=== PATIENT | male | born 1960 | race Caucasian/White ===

== ENCOUNTER → 2017-06-17 | Outpatient (CLI) | payer BC ==
[2016-07-31 15:01] VITALS: BP 132/85
[~2017-06-17] MED LIST: ACET-1574; CELE200C PO; ENOX40DI SQ; FERR142T13 PO; GLUC100018 PO; HYDR-2679 PO; LISI-334 PO; LISI40TA PO; METF-620 PO; SIMV10TA3 PO; SIMV20TA3 PO; SOTA80TA48 PO; WARF4TAB7 PO
[2017-06-17 10:25] LABS: BILIRUBIN,URINE NEGATIVE (NEG); GLUCOSE,URINE 100 mg/dL (NEG); NITRITE,URINE NEGATIVE (NEG); PROTEIN,URINE NEGATIVE (NEG-TRACE); UROBILINOGEN,URINE 0.2 mg/dL (0.2 mg/dL)
[2017-06-17 10:25] LABS: BASO # 0.1 x10^3/uL (0.0-0.2); BASO % 1 % (0-3); EOS % 4 % (0-3); HEMATOCRIT 42.3 % (39.0-53.0); HEMOGLOBIN 13.5 g/dL (13.0-17.5); LYMPH # 1.6 x10^3/uL (1.0-4.8); LYMPH % 15 % (24-48); MEAN CORPUSCULAR HEMOGLOBIN 29 pg (25-35); MEAN CORPUSCULAR HGB CONC 32 g/dL (31-37); MEAN CORPUSCULAR VOLUME 90 fL (79-100); MONO % 9 % (0-9); NEUT % 72 % (31-73); PLATELET COUNT 233 x10^3/uL (140-400); RED BLOOD COUNT 4.71 x10^6/uL (4.30-5.70); RED CELL DISTRIBUTION WIDTH 14.6 % (11.5-14.5)
[2017-06-17 10:35] LABS: INR 2.1 (0.8-1.1); PROTHROMBIN TIME PATIENT 22.1 SEC (11.7-14.0)
[2017-06-17 10:38] LABS: BACTERIA,URINE 0 /HPF (0-FEW); WBC,URINE 0 /HPF (0-4)
[2017-06-17 10:39] LABS: ALBUMIN 3.4 g/dL (3.4-5.0); CALCIUM 8.7 mg/dL (8.5-10.1); CREATININE 0.8 mg/dL (0.7-1.3); GFR 99.3; POTASSIUM 4.7 mmol/L (3.5-5.1)
--- NOTE | 2017-06-17 13:38 | EKG ---
[facility] [address] [place] [address] Test Date: 2017-06-17 Test Time: 13:43:18 Pat Name: LAUREN ALVAREZ Department: Room: Gender: M Lathe Winder: : 1960 Requested By: DOLORES VITAL Order Number: [id number] Reading MD: Kailee Mireles Measurements Intervals Elkins Rate: 70 P: ID: QRS: 3 QRSD: 100 T: 36 QT: 422 QTc: 459 Interpretive Statements SINUS RHYTHM PREMATURE ATRIAL CONTRACTIONS POSSIBLY ABNORMAL ECG Electronically Signed On 06-18-2017 19:13:56 CDT by Kailee Mireles
--- NOTE | 2017-06-17 18:00 | RAD ---
INDICATION: Preoperative evaluation. COMPARISON: 07/30/2016 FINDINGS: 2 views of chest obtained. Poststernotomy changes with pacemaker again seen. Degenerative changes of the thoracic spine with osteophyte formation. No definite focal airspace consolidation or pulmonary edema. IMPRESSION: No definite focal airspace consolidation. Degenerative changes of the spine.
== END | disposition home or self-care (01) ==
LOC: SURGPAT 13:11
PROVIDERS: ATTEND Orthopaedic Surgery
DX: Z01.818 Encounter for other preprocedural examination (principal); M25.78 Osteophyte, vertebrae; M47.894 Other spondylosis, thoracic region; I49.1 Atrial premature depolarization; I10 Essential (primary) hypertension
CPT/HCPCS: 36415; 71020; 80048; 81001; 82040; 82306; 85025; 85610; 85651; 85730; 87641; 93005

== ENCOUNTER 2017-07-09 05:35 | Inpatient (IN) | payer BC ==
--- NOTE | 2017-07-08 15:06 | PDOC1 ---
History and Physical Date of Admission Date of Admission DATE: 07/09/17 Identification/Chief Complaint Chief Complaint left knee osteoarthritis pain Problems: Source Source: Chart review History of Present Illness History of Present Illness Jl is a 56 year old male here today for left knee pain. He has bilateral knee osteoarthritis that has been managed with periodic corticosteroid injections. The left knee is more painful than right knee. His last cortisone injection was on 02/14/17. Celebrex helps his knee pain. Past Medical History Cardiovascular: CHF, HTN, Aortic stenosis, Other GI: GERD Musculoskeletal: Osteoarthritis Endocrine: Diabetes Past Surgical History Past Surgical History: Other (aortic valve implant 1997, right knee scope with MM and LM 05/22/16) Family History Family History COPD - parents Family History: Depression, Diabetes Social History Smoke: No ALCOHOL: rare Drugs: None Current Medications Current Medications Current Medications Morphine Sulfate 5 mg/Ketorolac Tromethamine 30 mg/Ropivacaine 60 ml/ Epinephrine HCl 0.5 mg/Sodium Chloride 100 ml @ 100 mls/hr 1X PERIOP ONCE INT ART ; Start 07/09/17 at 06:00; Stop 07/09/17 at 06:59 Active Scripts Active Reported Celebrex (Celecoxib) 200 Mg Capsule 200 Mg PO PRN Q24HRS PRN 30 Days Slow Fe (Ferrous Sulfate) 142 Mg Tablet.er 142 Mg PO DAILY Glucosamine (Glucosamine Sulfate 2KCL) 1,000 Mg Tablet Unknown Dose PO Lortab 7.5-325 mg Tablet (Hydrocodone/Acetaminophen) 1 Each Tablet 1-2 Tab PO Q4HRS PRN Lisinopril 40 Mg Tablet 1 Tab PO DAILY Simvastatin 10 Mg Tablet 1 Tab PO QHS Sotalol (Sotalol Hcl) 80 Mg Tablet 1 Tab PO BID Warfarin Sodium 4 Mg Tablet 8 Mg PO UD PT TAKES 8 MG DAILTY EXCEPT NONE ON SUNDAYS Metformin Hcl 1,000 Mg Tablet 1,000 Mg PO BIDWMEALS Celebrex (Celecoxib) 200 Mg Capsule 200 Mg PO DAILY 0 Days Allergies Allergies: Coded Allergies: azithromycin (Verified Allergy, Intermediate, Hives, 07/30/16) codeine (Verified Adverse Reaction, Intermediate, gi, 07/30/16) shellfish derived (Verified Adverse Reaction, Unknown, Unknown, 06/14/17) Physical Exam General: Alert, Oriented X3, Cooperative, No acute distress HEENT: Atraumatic, EOMI Lungs: Normal air movement Heart: RRR Abdomen: Soft Extremities: No clubbing, No cyanosis, No edema, Normal pulses, Other (Upon inspection of the left knee, there are no masses or detectable effusion. Mild valgus alignment. The left knee shows active range of motion from 0-115 degrees. There is crepitus felt with motion and pain at the extremes of motion. There is tenderness to palpation along the lateral joint line. The knee is stable to varus and valgus stress, without subluxation or laxity. Quadriceps and hamstring show normal strength of 5/5, with normal muscle tone. Trace bilateral lower extremity edema. Varicosities to bilateral lower extremities.) Skin: No rashes, No breakdown, No significant lesion Neuro: Normal speech, Sensation intact Psych/Mental Status: Mental status NL, Mood NL Images Images IMAGING REPORT Joint survey, hips knees and ankles Clinical information: Preoperative for total knee arthroplasty Comparison: None. Findings Bones: The angle between the right hip-ankle mechanical axis and the femoral shaft is 5. The angle between the left hip-ankle mechanical axis and the femoral shaft is 5 . The mechanical axis crosses near the center of the right knee indicating probable normal alignment possible slight varus alignment. The mechanical axis crosses in the lateral aspect of the left knee indicating valgus alignment. Joints: There are degenerative changes at the left knee laterally, and possibly at the right knee medially. The hips and ankles show minimal degenerative changes. Soft tissue: Normal. Impression: Valgus alignment of the left knee. Trace varus alignment of the right knee. The difference between the mechanical axis and femoral shaft anatomic axis is 5 bilaterally. Dictated and Signed Using Voice Recognition Software Jomar Johnson MD VTE Prophylaxis Ordered VTE Prophylaxis Devices: Yes VTE Pharmacological Prophylaxi: Yes Assessment/Plan Assessment/Plan We discussed left total knee arthroplasty in detail, the rehabilitation process , joint class, and surgical procedure. We discussed the potential risks of surgery, including infection, blood clots, bleeding, continued pain, need for revision surgery, and any other potential surgical or anesthetic complications. All of his questions were answered and he agrees to proceed. We will inject his right knee with cortisone while under anesthesia. CANDICE JONES Jul 08, 2017 15:06
[2017-07-09] VITALS (10 sets, daily range): BP systolic 127–158; BP diastolic 68–95
[~2017-07-09] VITALS: Ht 193 cm; Wt 164.7 kg
[2017-07-09] MEDS ORDERED: TRANEXAMIC ACID 1,000 MG in IV NS 50ML -- 1ST BAG INJ ONE (06:00)
[2017-07-09] MEDS ORDERED: MORPHINE SULFATE 5 MG, KETOROLAC 30 MG, ROPIVacaine 0.5% PF 60 ML, EPINEPHrine 0.5 MG i... INT ART ONE ×5 (06:00)
[2017-07-09] MEDS ORDERED: HYDROcodone/APAP 7.5/325MG 1 TAB TABLET PO PRN ×2 (06:00→10:00)
[2017-07-09] MEDS ORDERED: CELECOXIB 200 MG CAPSULE. PO PRN (06:00)
[2017-07-09] MEDS ORDERED: DEXAMETHASONE SOD PHOS 20 MG/5 ML VIAL. ONE (06:27)
[2017-07-09] MEDS ORDERED: PROPOFOL 20 ML IV ONE ×2 (06:27→09:31)
[2017-07-09] MEDS ORDERED: ONDANSETRON PF 4 MG/2 ML VIAL. ONE (06:27)
[2017-07-09] MEDS ORDERED: LIDOCAINE 2% PF Vial for OR 5 ML VIAL. ONE (06:27)
[2017-07-09] MEDS ORDERED: VANCOMYCIN 1 GM VIAL. ONE (06:32)
[2017-07-09] MEDS ORDERED: TOBRAMYCIN POWDER 1.2 GM VIAL. ONE (06:32)
[2017-07-09] MEDS ORDERED: BUPIVACAINE MPF 0.25% 30 ML VIAL. ONE (06:38)
[2017-07-09] MEDS ORDERED: methylPREDNISolone ACETATE 80 MG/ML VIAL. ONE (06:38)
[2017-07-09] MEDS ORDERED: FAMOTIDINE 20 MG/2 ML VIAL ONE (06:51)
[2017-07-09] MEDS ORDERED: MIDAZOLAM HCL/PF 2 MG/2 ML VIAL. ONE (06:51)
[2017-07-09] MEDS ORDERED: fentaNYL PF VIAL 100 MCG/2 ML VIAL ONE ×2 (06:51→08:05)
[2017-07-09] MEDS ORDERED: IV RINGERS,LACTATED 1000ML 1,000 ML IV SCH (07:00)
[2017-07-09] MEDS ORDERED: PROCHLORPERAZINE 10 MG/2 ML VIAL. IV PRN ×2 (07:00→10:00)
[2017-07-09] MEDS ORDERED: LIDOCAINE 1% PF 2 ML VIAL. ID PRN (07:00)
[2017-07-09] MEDS ORDERED: fentaNYL PF VIAL 100 MCG/2 ML VIAL IV PRN ×3 (07:00→10:00)
[2017-07-09] MEDS ORDERED: SUCCINYLCHOLINE 200 MG/10 ML VIAL. ONE (07:16)
[2017-07-09] MEDS ORDERED: ROCURONIUM 50 MG/5 ML VIAL. ONE (07:27)
[2017-07-09] MEDS ORDERED: LIDOCAINE 2% TOPICAL JELLY 5GM TUBE. TP ONE (07:44)
[2017-07-09] MEDS ORDERED: 0.9 % SODIUM CHLORIDE 50 ML VIAL. IJ ONE (07:50)
[2017-07-09] MEDS ORDERED: TRANEXAMIC ACID 1,000 MG in IV NS 50ML -- 2ND BAG INJ ONE (08:00)
[2017-07-09 08:08] LABS: INR 1.1 (0.8-1.1); PROTHROMBIN TIME PATIENT 13.3 SEC (11.7-14.0)
[2017-07-09] MEDS ORDERED: NEOSTIGMINE 10 MG/10 ML VIAL. ONE (08:49)
[2017-07-09] MEDS ORDERED: GLYCOPYRROLATE 1 MG/5 ML VIAL. ONE (08:50)
[2017-07-09] MEDS ORDERED: DESFLURANE > 120 MINUTES IH ONE (09:28)
[2017-07-09] MEDS ORDERED: DESFLURANE 61 TO 120 MINUTES IH ONE (09:28)
--- NOTE | 2017-07-09 09:32 | PDOC4 ---
Operative Note Operative Note Date of Procedure: July 09, 2017 Pre-Op Diagnosis: Osteoarthritis left knee and right knee Post-Op Diagnosis: Osteoarthritis left knee and right knee Procedure: left total knee arthroplasty and right knee corticosteroid injection Surgeon: Dolores Johnson MD Compliance Review Officer: Sulema Smith PA-C Anesthesia: General EBL: 100 mL Specimens Obtained: left knee bone and soft tissue Complications: none Implant Company: [employer] Drains: hemovac plus pain catheter Tourniquet time: 55 Minutes Tourniquet Pressure: 350 mm Hg Indications for Procedure: Arthritis pain unrelieved by nonoperative management. Findings: Severe osteoarthritis with bone on bone contact laterally Implants used: Size 7 left bicruciate stabilized Journey II BCS Oxinium femoral component, size 7 left Journey nonporous tibial baseplate, size 7-8 10 mm left Journey II BCS XLPE articular insert, 41 mm oval Lori II resurfacing patellar component Procedure in Detail: The patient was identified in the preoperative holding area, and the correct left lower extremity was marked by me. The patient was taken to the operating room where the patient was anesthetized by the Department of Anesthesia. Preoperative antibiotics were given intravenously. Tranexamic acid 1 g was given intravenously for intraoperative hemostasis. A "time-out" procedure was performed. The patient was positioned supine on the operative table with a tourniquet on the upper left thigh. The right knee was prepared for injection with topical Betadine, and then the right knee was injected with 80 mg of DepoMedrol and 1 mL of 0.25% bupivacaine, using sterile technique. A Band-Aid was placed.The left lower limb was thoroughly prepped and draped in sterile fashion. An impervious stockinet and adhesive drape were used such that the skin was entirely covered. An Guevara leg marie was used. The operating team wore personal exhaust-ventilated hoods. The limb was elevated to exsanguinate it, and the tourniquet was inflated.. A midline skin incision was made with a scalpel using the patella and tibial tubercle as landmarks. Electrocautery was used for hemostasis. My casino assistant manager used rake retractors. A medial parapatellar arthrotomy incision was used with extension into the distal quadriceps tendon. The patella was retracted laterally and Hohmann retractors were now used by my casino assistant manager. Excess synovium, the menisci, and the cruciate ligaments were resected sharply. The patella was assessed and excess synovium and osteophytes around the patellar articulation were removed. The patella was measured with a caliper, cut freehand with a saw using caliper measurements, sized, and then drilled for an oval three-pegged patella component. Periarticular anesthetic injection was used in the suprapatellar pouch and distal quadriceps muscle. Whitesides's line and the transepicondylar axis were marked on the femur. An intra-medullary 5 degree cutting guide was pinned to the femur, and a distal femoral cut was made with an oscillating saw. An additional 4 mm resection was used due to the deep femoral sulcus, and deficient femoral condyle. My casino assistant manager held Hohmann retractors and an [facility] retractor to protect the medial and lateral collateral ligaments, the patellar tendon, the skin and the other soft tissues. An anterior referencing guide was applied with external rotation of 3 to match Whitesides line. A 5-in-1 Journey II cutting guide was then applied and pinned to the femur. The posterior, anterior, and all chamfer cuts were made with the oscillating saw. An extramedullary guide was pinned to the tibia and rotational alignment and the planned resection thickness assessed. An external alignment claudia was used to verify the planned cut in the varus-valgus plane and regarding posterior slope referencing the tibial tubercle, the tibial shaft, the ankle joint, and the second metatarsal. The upper tibia was cut made with an oscillating saw. My casino assistant manager held Hohmann retractors and a posterior cruciate ligament retractor to protect the medial and lateral collateral ligaments, the patellar tendon, the skin, the peroneal nerve and the other soft tissues. The upper tibia was sized with a trial baseplate. The posterior compartment was cleared of osteophytes and loose bodies, and posterior capsule released. Periarticular anesthetic injection was used in the posterior compartment. The box cut for a posterior stabilized component was made. A preliminary reduction was performed with a trial femur, trial tibial baseplate and trial polyethylene. Soft-tissue balancing was now performed, and extension and rotation of the alignments was checked using a guide claudia in the tibial trial and a guide pin in the femur. No additional releases were required. The stability was assessed using different thicknesses of tibial articular surface to find satisfactory stability and good range of motion. The rotation of the tibial component was marked on the upper tibia. Final trial reduction was now performed verifying patella tracking and tibiofemoral stability and alignment. The tibia preparation was completed with a drill, saw, and fin punch at the previously noted rotation. The final implants were verified and opened. Outer gloves were changed by the operating team. The bone cuts were washed thoroughly with the [employer] InterPulse device and dried. Two packages of Staley + Nephew Rally HV bone cement were mixed in powdered form with Vancomycin 1gm and Tobramycin 1.2 gm, and then vacuum-mixed with the monomer, and placed into a cement gun. The cut surfaces of the bone were thoroughly dried with Pride-tip suction and with laparotomy sponges for cement interdigitation. The final components were cemented into place. The knee was kept at full extension while the cement hardened, and excess cement was removed. Tranexamic acid 1 g was redosed intravenously for additional intraoperative hemostasis. A final periarticular anesthetic injection was used for pain relief. The tourniquet was released, and electrocautery was used for hemostasis. A final check of [id number] and stability was made, and the polyethylene implant final size was chosen. The polyethylene implant was secured to the tibial baseplate, and the knee was reduced a final time. Thorough irrigation was used. Hemovac and pain catheter were used.The arthrotomy was closed with interrupted [id number] #1 PDS suture. The arthrotomy incision was then run with #1 STRATAFIX Symmetric PDS Plus Knotless suture. The subcutaneous tissues were closed with #2-0 Vicryl by my casino assistant manager. The skin was approximated with larissa by my casino assistant manager. The skin incision was then covered and reinforced with a Prevena sterile suction dressing. Needle and sponge counts were correct. There were no apparent complications. The patient returned to the recovery room in stable condition. DOLORES JOHNSON MD Jul 09, 2017 09:32
[2017-07-09] MEDS ORDERED: HYDROcodone/APAP 10/325 1 TAB TABLET PO PRN (10:00)
[2017-07-09] MEDS ORDERED: MORPHINE SULFATE 10 MG/ML VIAL. IV PRN (10:00)
[2017-07-09] MEDS ORDERED: traMADol 50 MG TABLET PO PRN (10:00)
[2017-07-09] MEDS ORDERED: MORPHINE SULFATE 4 MG/ML DISP.SYRIN. IV PRN ×3 (10:00)
[2017-07-09] MEDS ORDERED: METOCLOPRAMIDE HCL 10 MG/2 ML VIAL. IV PRN (10:00)
[2017-07-09] MEDS ORDERED: oxyCODONE/APAP 7.5/325 1 TAB TABLET PO PRN (10:00)
[2017-07-09] MEDS ORDERED: PROCHLORPERAZINE 5 MG TABLET. PO PRN (10:00)
[2017-07-09] MEDS ORDERED: oxyCODONE/APAP 5/325 1 TAB TABLET PO PRN (10:00)
[2017-07-09] MEDS ORDERED: DEXTROSE 50% 25 GM / 50ML DISP.SYRIN. IV PRN (10:00)
[2017-07-09] MEDS ORDERED: CALCIUM CARBONATE 500 MG TAB.CHEW PO PRN (10:00)
[2017-07-09] MEDS ORDERED: ZOLPIDEM 5 MG TABLET. PO PRN (10:00)
[2017-07-09] MEDS ORDERED: diphenhydrAMINE 50 MG/ML VIAL IV PRN (10:00)
[2017-07-09] MEDS ORDERED: 0.9 % SODIUM CHLORIDE 10 ML DISP.SYRIN. IV PRN (10:00)
[2017-07-09] MEDS: fentaNYL PF VIAL 100 MCG/2 ML VIAL IV PRN ×2 (10:09→10:34)
--- NOTE | 2017-07-09 10:26 | RAD ---
2 views left knee radiographs 07/09/2017 Clinical indication: Postoperative evaluation. Comparison: Left knee radiograph 10/13/2013 Findings: Interval total left knee arthroplasty with patellar resurfacing. Satisfactory alignment. No evidence of periprosthetic fracture. There is expected periarticular soft tissue swelling and gas. Impression: Expected postoperative changes of a total left knee arthroplasty with satisfactory alignment and no evidence of periprosthetic fracture.
[2017-07-09] MEDS ORDERED: IV DEXTROSE 5 %-0.45 % NACL 1,000 ML IV SCH (11:30)
[2017-07-09] MEDS: ceFAZolin SODIUM 3 GM in IV DEXTROSE 5% 100 ML IV SCH ×2 (13:46→19:12)
[2017-07-09] MEDS ORDERED: WARFARIN 7.5 MG TABLET. PO ONE (16:00)
[2017-07-09] MEDS ORDERED: WARFARIN 4 MG TABLET. PO SCH (16:00)
[2017-07-09] MEDS: FERROUS SULFATE 325 MG TABLET. PO SCH (16:33)
[2017-07-09] MEDS: KETOROLAC 30 MG, BUPIVACAINE MPF 0.25% 20 ML, EPINEPHrine 0.5 MG in TOTAL VOLUME SYRING... INT ART SCH (19:12)
[2017-07-09] MEDS: CELECOXIB 200 MG CAPSULE. PO SCH (21:13)
[2017-07-09] MEDS: SIMVASTATIN 10 MG TABLET PO SCH (21:13)
[2017-07-09] MEDS: SOTALOL 80 MG TABLET. PO SCH (21:13)
[2017-07-10] MEDS: ceFAZolin SODIUM 3 GM in IV DEXTROSE 5% 100 ML IV SCH (01:23)
[2017-07-10 03:33] VITALS: BP 139/71
[2017-07-10] MEDS: KETOROLAC 30 MG, BUPIVACAINE MPF 0.25% 20 ML, EPINEPHrine 0.5 MG in TOTAL VOLUME SYRING... INT ART SCH (05:29)
[2017-07-10 05:30] LABS: INR 1.1 (0.8-1.1); PROTHROMBIN TIME PATIENT 13.9 SEC (11.7-14.0)
[2017-07-10 05:32] LABS: HEMATOCRIT 35.3 % (39.0-53.0); HEMOGLOBIN 11.6 g/dL (13.0-17.5)
[2017-07-10] MEDS ORDERED: MAGNESIUM HYDROXIDE 2,400 MG/30 ML ORAL.SUSP. PO PRN (06:00)
[2017-07-10 06:36] VITALS: BP 131/78
[2017-07-10] MEDS: SOTALOL 80 MG TABLET. PO SCH ×2 (08:46→17:11)
[2017-07-10] MEDS: LISINOPRIL 40 MG TABLET. PO SCH (08:47)
[2017-07-10] MEDS: CELECOXIB 200 MG CAPSULE. PO SCH ×2 (08:47→20:53)
[2017-07-10] MEDS: MULTIVITAMIN with MINERAL TABLET. PO SCH (08:47)
[2017-07-10] MEDS: SENNOSIDES/DOCUSATE 8.6/50MG TABLET. PO SCH (08:47)
[2017-07-10] MEDS: FERROUS SULFATE 325 MG TABLET. PO SCH ×2 (08:47→17:10)
--- NOTE | 2017-07-10 13:18 | PDOC ---
PROGRESS NOTES Subjective Subjective No complaints. States he hasn't needed to take any pain medication today. Objective Vital Signs Vital Signs Date Time Temp Pulse Resp B/P (MAP) Pulse Ox O2 Delivery O2 Flow Rate FiO2 07/10/17 08:47 77 132/84 07/10/17 06:36 98.2 18 95 Room Air 98.2 07/09/17 14:02 3.0 Physical Exam Dressing dry. Prevena intact over incision. Pain catheter and Hemovac in place. Good dorsiflexion and plantarflexion of the foot with no evidence of neurovascular injury or DVT. Calves are soft and non-tender. Negative Homans. Peripheral pulses and light touch sensation intact. Labs Laboratory Tests Test 07/09/17 06:10 07/09/17 06:24 07/09/17 09:56 07/09/17 16:32 Prothrombin Time 13.3 SEC (11.7-14.0) Prothromb Time International Ratio 1.1 (0.8-1.1) Activated Partial Thromboplast Time 31 SEC (24-38) Glucose (Fingerstick) 156 mg/dL (70-99) 185 mg/dL (70-99) 224 mg/dL (70-99) Test 07/09/17 20:57 07/10/17 05:05 07/10/17 06:44 07/10/17 11:31 Glucose (Fingerstick) 239 mg/dL (70-99) 150 mg/dL (70-99) 131 mg/dL (70-99) Hemoglobin 11.6 g/dL (13.0-17.5) Hematocrit 35.3 % (39.0-53.0) Mean Corpuscular Hemoglobin Concent 33 g/dL (31-37) Prothrombin Time 13.9 SEC (11.7-14.0) Prothromb Time International Ratio 1.1 (0.8-1.1) Laboratory Tests Test 07/09/17 16:32 07/09/17 20:57 07/10/17 05:05 07/10/17 06:44 Glucose (Fingerstick) 224 mg/dL (70-99) 239 mg/dL (70-99) 150 mg/dL (70-99) Hemoglobin 11.6 g/dL (13.0-17.5) Hematocrit 35.3 % (39.0-53.0) Mean Corpuscular Hemoglobin Concent 33 g/dL (31-37) Prothrombin Time 13.9 SEC (11.7-14.0) Prothromb Time International Ratio 1.1 (0.8-1.1) Test 07/10/17 11:31 Glucose (Fingerstick) 131 mg/dL (70-99) Imaging Postoperative x-rays reviewed by me, showing satisfactory total knee replacement , with no apparent complications. Assessment Assessment POD #1 TKA Problems: Plan Plan of Care Continue POC including DVT prophylaxis and physical therapy. CANDICE JONES Jul 10, 2017 13:18
[2017-07-10] MEDS ORDERED: WARFARIN 10 MG TABLET. PO ONE (16:00)
[2017-07-10] MEDS ORDERED: BISACODYL 10 MG SUPP.RECT. PR PRN (16:00)
[2017-07-10] MEDS: traMADol 50 MG TABLET PO PRN (17:22)
[2017-07-10 18:09] VITALS: BP 177/100
[2017-07-10 18:50] VITALS: BP 130/73
[2017-07-10] MEDS: SIMVASTATIN 10 MG TABLET PO SCH (20:53)
[2017-07-11] MEDS: traMADol 50 MG TABLET PO PRN ×2 (05:14→08:21)
[2017-07-11 06:09] VITALS: BP 131/78
[2017-07-11 06:16] LABS: HEMATOCRIT 32.7 % (39.0-53.0); HEMOGLOBIN 10.7 g/dL (13.0-17.5)
[2017-07-11 06:32] LABS: INR 1.4 (0.8-1.1); PROTHROMBIN TIME PATIENT 16.4 SEC (11.7-14.0)
[2017-07-11] MEDS: MULTIVITAMIN with MINERAL TABLET. PO SCH (08:14)
[2017-07-11] MEDS: FERROUS SULFATE 325 MG TABLET. PO SCH ×2 (08:14→16:43)
[2017-07-11] MEDS: CELECOXIB 200 MG CAPSULE. PO SCH ×2 (08:14→20:59)
[2017-07-11] MEDS: LISINOPRIL 40 MG TABLET. PO SCH (08:15)
[2017-07-11] MEDS: SOTALOL 80 MG TABLET. PO SCH ×2 (08:15→20:59)
[2017-07-11] MEDS: SENNOSIDES/DOCUSATE 8.6/50MG TABLET. PO SCH (08:15)
--- NOTE | 2017-07-11 12:30 | PDOC ---
PROGRESS NOTES Subjective Subjective Doing well. Only reports mild pain increase from yesterday. Objective Vital Signs Vital Signs Date Time Temp Pulse Resp B/P (MAP) Pulse Ox O2 Delivery O2 Flow Rate FiO2 07/11/17 08:21 Room Air 07/11/17 08:15 77 131/78 07/11/17 06:15 20 95 07/11/17 06:09 98.3 98.3 07/09/17 14:02 3.0 Physical Exam Expected swelling. Pain catheter and drain have been removed. Prevena intact. Calf soft and nontender. Negative Homans sign. Good AROM ankle. Peripheral pulses and light touch sensation intact. Labs Laboratory Tests Test 07/09/17 16:32 07/09/17 20:57 07/10/17 05:05 07/10/17 06:44 Glucose (Fingerstick) 224 mg/dL (70-99) 239 mg/dL (70-99) 150 mg/dL (70-99) Hemoglobin 11.6 g/dL (13.0-17.5) Hematocrit 35.3 % (39.0-53.0) Mean Corpuscular Hemoglobin Concent 33 g/dL (31-37) Prothrombin Time 13.9 SEC (11.7-14.0) Prothromb Time International Ratio 1.1 (0.8-1.1) Test 07/10/17 11:31 07/10/17 16:37 07/10/17 20:35 07/11/17 06:00 Glucose (Fingerstick) 131 mg/dL (70-99) 138 mg/dL (70-99) 232 mg/dL (70-99) Hemoglobin 10.7 g/dL (13.0-17.5) Hematocrit 32.7 % (39.0-53.0) Mean Corpuscular Hemoglobin Concent 33 g/dL (31-37) Prothrombin Time 16.4 SEC (11.7-14.0) Prothromb Time International Ratio 1.4 (0.8-1.1) Test 07/11/17 06:20 Glucose (Fingerstick) 187 mg/dL (70-99) Laboratory Tests Test 07/10/17 16:37 07/10/17 20:35 07/11/17 06:00 07/11/17 06:20 Glucose (Fingerstick) 138 mg/dL (70-99) 232 mg/dL (70-99) 187 mg/dL (70-99) Hemoglobin 10.7 g/dL (13.0-17.5) Hematocrit 32.7 % (39.0-53.0) Mean Corpuscular Hemoglobin Concent 33 g/dL (31-37) Prothrombin Time 16.4 SEC (11.7-14.0) Prothromb Time International Ratio 1.4 (0.8-1.1) Assessment Assessment POD 2 TKA Problems: Plan Plan of Care Continue DVT prophylaxis and physical therapy. Planned discharge tomorrow. Office F/U in 10-[address] Johnson saw and examined the patient as well. CANDICE JONES Jul 11, 2017 12:30
[2017-07-11] MEDS ORDERED: WARFARIN 5 MG TABLET. PO ONE (16:00)
[2017-07-11 18:11] VITALS: BP 140/89
[2017-07-11 19:00] VITALS: BP 120/80
[2017-07-11] MEDS: SIMVASTATIN 10 MG TABLET PO SCH (20:59)
[2017-07-11] MEDS: ACETAMINOPHEN 325 MG TABLET. PO PRN (20:59)
[2017-07-12 05:36] LABS: INR 1.5 (0.8-1.1); PROTHROMBIN TIME PATIENT 16.9 SEC (11.7-14.0)
[2017-07-12 05:46] LABS: HEMATOCRIT 34.4 % (39.0-53.0); HEMOGLOBIN 11.4 g/dL (13.0-17.5)
[2017-07-12 06:04] VITALS: BP 132/79
[2017-07-12] MEDS: ACETAMINOPHEN 325 MG TABLET. PO PRN ×2 (06:07→13:21)
[2017-07-12] MEDS: MULTIVITAMIN with MINERAL TABLET. PO SCH (08:40)
[2017-07-12] MEDS: CELECOXIB 200 MG CAPSULE. PO SCH (08:40)
[2017-07-12] MEDS: FERROUS SULFATE 325 MG TABLET. PO SCH (08:40)
[2017-07-12] MEDS: SENNOSIDES/DOCUSATE 8.6/50MG TABLET. PO SCH (08:40)
[2017-07-12] MEDS: SOTALOL 80 MG TABLET. PO SCH (08:41)
[2017-07-12] MEDS: LISINOPRIL 40 MG TABLET. PO SCH (08:42)
--- NOTE | 2017-07-12 09:02 | PATHOLOGY ---
PATHOLOGY REPORT * * * * * * * * FINAL DIAGNOSIS: Segments of bone and soft tissue, left total knee arthroplasty: - Degenerative arthritis. (JPM:[email or web address]; 07/11/2017) REPORT ELECTRONICALLY SIGNED BY: Ian Brenner M.D. DATE/TIME: 07/12/2017 09:01 * * * * * * * * GROSS PATHOLOGY: Received in formalin labeled "Jl Alvarez left knee tissue" is a 17.0 x 15.8 x 1.2 cm aggregate of martínez-white bone fragments and martínez-yellow lobulated soft tissue. The bone fragments have cartilaginous covered articular surfaces. There are degenerative changes of the articular surfaces. Linoleum Layer Apprentice sections of the specimen are submitted in cassette A1 following decalcification. ([facility]; 07/09/2017) INITIAL CPT CODE(S): A; 95463, 83213 Professional services performed [place] [facility] [place] [address] Technical services performed by [facility] at [address] [place] [address], [place] [address]. SPECIMEN(S) RECEIVED: A.Left knee tissue CLINICAL HISTORY: Left knee OA PATIENT: JL ALVAREZ /AGE: 10 1960 (Age: 57) PATIENT #: [id number] ALT CASE #: SPECIMEN COLLECTION DATE: 07/09/2017 SPECIMEN RECEIVED DATE: 07/09/2017 [facility] - [address] [place] [address] - PHONE: [phone] * * * END OF REPORT * * *
--- NOTE | 2017-07-12 13:34 | PDOC ---
PROGRESS NOTES Subjective Subjective Doing well. Planning for discharge later today after PT. Objective Vital Signs Vital Signs Date Time Temp Pulse Resp B/P (MAP) Pulse Ox O2 Delivery O2 Flow Rate FiO2 07/12/17 08:42 83 132/79 07/12/17 08:00 Room Air 07/12/17 06:04 98.6 18 96 98.6 07/09/17 14:02 3.0 Physical Exam Expected swelling. Prevena dressing intact and dry. Calf soft and nontender. Negative Homans. Good AROM ankle. Peripheral pulses and light touch sensation intact. Labs Laboratory Tests Test 07/10/17 16:37 07/10/17 20:35 07/11/17 06:00 07/11/17 06:20 Glucose (Fingerstick) 138 mg/dL (70-99) 232 mg/dL (70-99) 187 mg/dL (70-99) Hemoglobin 10.7 g/dL (13.0-17.5) Hematocrit 32.7 % (39.0-53.0) Mean Corpuscular Hemoglobin Concent 33 g/dL (31-37) Prothrombin Time 16.4 SEC (11.7-14.0) Prothromb Time International Ratio 1.4 (0.8-1.1) Test 07/11/17 11:35 07/11/17 16:43 07/12/17 04:47 07/12/17 04:49 Glucose (Fingerstick) 136 mg/dL (70-99) 190 mg/dL (70-99) Prothrombin Time 16.9 SEC (11.7-14.0) Prothromb Time International Ratio 1.5 (0.8-1.1) Hemoglobin 11.4 g/dL (13.0-17.5) Hematocrit 34.4 % (39.0-53.0) Mean Corpuscular Hemoglobin Concent 33 g/dL (31-37) Test 07/12/17 06:12 Glucose (Fingerstick) 184 mg/dL (70-99) Laboratory Tests Test 07/11/17 16:43 07/12/17 04:47 07/12/17 04:49 07/12/17 06:12 Glucose (Fingerstick) 190 mg/dL (70-99) 184 mg/dL (70-99) Prothrombin Time 16.9 SEC (11.7-14.0) Prothromb Time International Ratio 1.5 (0.8-1.1) Hemoglobin 11.4 g/dL (13.0-17.5) Hematocrit 34.4 % (39.0-53.0) Mean Corpuscular Hemoglobin Concent 33 g/dL (31-37) Assessment Assessment POD 3 TKA Problems: Plan Plan of Care Discharge later today, to home. Continue DVT prophylaxis and physical therapy. F/U 10-14 days. DOLORES VITAL MD Jul 12, 2017 13:34
--- NOTE | 2017-07-12 13:37 | PDOC3 ---
Discharge Summary Visit Information Date of Admission: Jul 09, 2017 Date of Discharge: Jul 12, 2017 Admitting Diagnosis: left knee osteoarthritis Brief Hospital Course Allergies Allergies Coded Allergies Type Severity Reaction Last Updated Verified azithromycin Allergy Intermediate Hives 07/09/17 Yes codeine Adverse Reaction Intermediate gi 07/09/17 Yes shellfish derived Adverse Reaction Intermediate 07/09/17 Yes Vital Signs Vital Signs Date Time Temp Pulse Resp B/P (MAP) Pulse Ox O2 Delivery O2 Flow Rate FiO2 07/12/17 08:42 83 132/79 07/12/17 08:00 Room Air 07/12/17 06:04 98.6 18 96 98.6 Lab Results Laboratory Tests Test 07/10/17 16:37 07/10/17 20:35 07/11/17 06:00 07/11/17 06:20 Glucose (Fingerstick) 138 mg/dL (70-99) 232 mg/dL (70-99) 187 mg/dL (70-99) Hemoglobin 10.7 g/dL (13.0-17.5) Hematocrit 32.7 % (39.0-53.0) Mean Corpuscular Hemoglobin Concent 33 g/dL (31-37) Prothrombin Time 16.4 SEC (11.7-14.0) Prothromb Time International Ratio 1.4 (0.8-1.1) Test 07/11/17 11:35 07/11/17 16:43 07/12/17 04:47 07/12/17 04:49 Glucose (Fingerstick) 136 mg/dL (70-99) 190 mg/dL (70-99) Prothrombin Time 16.9 SEC (11.7-14.0) Prothromb Time International Ratio 1.5 (0.8-1.1) Hemoglobin 11.4 g/dL (13.0-17.5) Hematocrit 34.4 % (39.0-53.0) Mean Corpuscular Hemoglobin Concent 33 g/dL (31-37) Test 07/12/17 06:12 Glucose (Fingerstick) 184 mg/dL (70-99) Laboratory Tests Test 07/11/17 16:43 07/12/17 04:47 07/12/17 04:49 07/12/17 06:12 Glucose (Fingerstick) 190 mg/dL (70-99) 184 mg/dL (70-99) Prothrombin Time 16.9 SEC (11.7-14.0) Prothromb Time International Ratio 1.5 (0.8-1.1) Hemoglobin 11.4 g/dL (13.0-17.5) Hematocrit 34.4 % (39.0-53.0) Mean Corpuscular Hemoglobin Concent 33 g/dL (31-37) Brief Hospital Course 57 year old male who presented with knee osteoarthritis, for elective total knee arthroplasty. The patient underwent total knee arthroplasty under general anesthesia the day of admission. Perioperative antibiotics and DVT prophylaxis were used. Postoperatively physical therapy and case management were consulted. The patient progressed and is stable for discharge. Discharge Information Condition at Discharge: Stable Follow Up: Weeks (2) Disposition/Orders: D/C to Home Scheduled Celecoxib (Celebrex), 200 MG PO DAILY, (Reported) Ferrous Sulfate (Slow Fe), 142 MG PO DAILY, (Reported) Lisinopril (Lisinopril), 1 TAB PO DAILY, (Reported) Metformin Hcl (Metformin Hcl), 1,000 MG PO BIDWMEALS, (Reported) Simvastatin (Simvastatin), 1 TAB PO QHS, (Reported) Sotalol Hcl (Sotalol), 1 TAB PO BID, (Reported) Warfarin Sodium (Warfarin Sodium), 8 MG PO UD, (Reported) Scheduled PRN Celecoxib (Celebrex), 200 MG PO PRN Q24HRS PRN for PAIN, (Reported) Miscellaneous Medications Glucosamine Sulfate 2KCL (Glucosamine), Unknown Dose PO, (Reported) Discontinued Medications Hydrocodone/Acetaminophen (Lortab 7.5-325 mg Tablet), 1-2 TAB PO Q4HRS PRN for PAIN, (Reported) Patient Instructions Patient Instructions Patient Instructions Continue to WBAT with walker. Keep dressing dry and intact. F/U with [facility] in 10-14 days. Call for appointment. Physical therapy for TKA Continue DVT prophylaxis. Coumadin clinic for dosing. CANDICE JONES Jul 12, 2017 13:37
[2017-07-12] MEDS ORDERED: WARFARIN 10 MG TABLET. PO ONE (14:00)
--- NOTE | 2017-07-12 15:39 | PDOC2 ---
CONSULT Date of Consult Date of Consult DATE: 07/12/17 TIME: 15:35 Reason for Consult Reason for Consult: Cardiac history Referring Physician Referring Physician: Dr. Johnson Identification/Chief Complaint Chief Complaint Knee pain Problems: History of Present Illness Reason for Visit: This patient is a 57-year-old gentleman with a known history of valvular heart disease that is status post aortic valve replacement with a mechanical valve. The patient came in for knee surgery and prior to that the anticoagulation was stopped and he was bridged with Lovenox. His INR today is 1.5. He had this surgery and did rather well. The patient has no cardiac complaints Past Medical History Cardiovascular: CHF, HTN, Aortic stenosis, Other GI: GERD Musculoskeletal: Osteoarthritis Endocrine: Diabetes Past Surgical History Past Surgical History: Other (aortic valve implant 1997, right knee scope with MM and LM 05/22/16) Family History Family History: Depression, Diabetes Social History No ALCOHOL: rare Drugs: None Current Medications Current Medications Current Medications Morphine Sulfate 5 mg/Ketorolac Tromethamine 30 mg/Ropivacaine 60 ml/ Epinephrine HCl 0.5 mg/Sodium Chloride 100 ml @ 100 mls/hr 1X PERIOP ONCE INT ART Last administered on 07/09/17 08:06; Start 07/09/17 at 06:00; Stop at 06:59; Status DC Celecoxib (CeleBREX) 400 mg 1X PREOP PRN PO PRIOR TO PROCEDURE; Start at 06:00; Stop 07/09/17 at 18:00; Status DC Acetaminophen/ Hydrocodone Bitart (Lortab 7.5/325) 2 tab 1X PREOP PRN PO PRIOR TO PROCEDURE Last administered on 07/09/17 06:43; Start 07/09/17 at 06:00; Stop 07/09/17 at 18:00; Status DC Cefazolin Sodium/ Dextrose 50 ml @ 100 mls/hr 1X PREOP PRN IV PRIOR TO PROCEDURE Last administered on 07/09/17 07:26; Start 07/09/17 at 06:00; Stop 07/09/17 at 18:00; Status DC Tranexamic Acid 1000 mg/Sodium Chloride 60 ml @ 60 mls/hr 1X PERIOP ONCE INJ Last administered on 07/09/17 07:45; Start 07/09/17 at 06:00; Stop 07/09/17 at 06:59; Status DC Tranexamic Acid 1000 mg/Sodium Chloride 60 ml @ 60 mls/hr 1X PERIOP ONCE INJ Last administered on 07/09/17 09:02; Start 07/09/17 at 08:00; Stop 07/09/17 at 08:59; Status DC Fentanyl Citrate (Fentanyl 2ml Vial) 25 mcg PRN Q5MIN PRN IV MILD PAIN; Start 07/09/17 at 07:00; Stop 07/10/17 at 06:59; Status DC Fentanyl Citrate (Fentanyl 2ml Vial) 50 mcg PRN Q5MIN PRN IV MODERATE PAIN Last administered on 07/09/17 10:34; Start 07/09/17 at 07:00; Stop 07/10/17 at 06:59; Status DC Ringer's Solution 1,000 ml @ 30 mls/hr Q24H IV Last administered on 06:35; Start 07/09/17 at 07:00; Stop 07/09/17 at 18:59; Status DC Lidocaine HCl (Xylocaine-Mpf 1% Vial) 2 ml PRN 1X PRN ID IV START; Start 07/09 at 07:00; Stop 07/10/17 at 06:59; Status DC Prochlorperazine Edisylate (Compazine) 5 mg PACU PRN PRN IV NAUSEA, MRX1 Last administered on 07/09/17 10:13; Start 07/09/17 at 07:00; Stop 07/10/17 at 06 :59; Status DC Propofol 20 ml @ As Directed STK-MED ONCE IV ; Start 07/09/17 at 06:27; Stop 07/09/17 at 06:28; Status DC Lidocaine HCl (Lidocaine Pf 2% Vial) 5 ml STK-MED ONCE .ROUTE ; Start 07/09/17 at 06:27; Stop 07/09/17 at 06:28; Status DC Ondansetron HCl (Zofran) 4 mg STK-MED ONCE .ROUTE ; Start 07/09/17 at 06:27; Stop 07/09/17 at 06:28; Status DC Dexamethasone Sodium Phosphate (Decadron) 20 mg STK-MED ONCE .ROUTE ; Start at 06:27; Stop 07/09/17 at 06:28; Status DC Vancomycin HCl 1 gm STK-MED ONCE .ROUTE Last administered on 07/09/17 08:06; Start 07/09/17 at 06:32; Stop 07/09/17 at 06:33; Status DC Tobramycin Sulfate 1.2 gm STK-MED ONCE .ROUTE Last administered on 07/09/17 08:06; Start 07/09/17 at 06:32; Stop 07/09/17 at 06:33; Status DC Bupivacaine HCl (Sensorcaine Mpf 0.25%) 30 ml STK-MED ONCE .ROUTE Last administered on 07/09/17 07:37; Start 07/09/17 at 06:38; Stop 07/09/17 at 06 :39; Status DC Methylprednisolone Acetate (DEPO-Medrol 80MG VIAL) 80 mg STK-MED ONCE .ROUTE Last administered on 07/09/17 07:37; Start 07/09/17 at 06:38; Stop 07/09/17 at 06:39; Status DC Famotidine (Pepcid Vial) 20 mg STK-MED ONCE .ROUTE ; Start 07/09/17 at 06:51; Stop 07/09/17 at 06:52; Status DC Midazolam HCl (Versed) 2 mg STK-MED ONCE .ROUTE ; Start 07/09/17 at 06:51; Stop 07/09/17 at 06:52; Status DC Fentanyl Citrate (Fentanyl 2ml Vial) 100 mcg STK-MED ONCE .ROUTE ; Start at 06:51; Stop 07/09/17 at 06:52; Status DC Succinylcholine Chloride (Anectine) 200 mg STK-MED ONCE .ROUTE ; Start at 07:16; Stop 07/09/17 at 07:17; Status DC Rocuronium [place] (Zemuron) 50 mg STK-MED ONCE .ROUTE ; Start 07/09/17 at 07: 27; Stop 07/09/17 at 07:28; Status DC Lidocaine HCl (Xylocaine 2% Topical 5gm Tube) 5 betty STK-MED ONCE TP ; Start at 07:44; Stop 07/09/17 at 07:45; Status DC Cefazolin Sodium 50 ml @ As Directed STK-MED ONCE IV ; Start 07/09/17 at 07:48 ; Stop 07/09/17 at 07:49; Status DC Ephedrine Sulfate (Akovaz) 50 mg STK-MED ONCE .ROUTE ; Start 07/09/17 at 07:50 ; Stop 07/09/17 at 07:51; Status DC Sodium Chloride (Sodium Chloride) 50 ml STK-MED ONCE IJ ; Start 07/09/17 at 07: 50; Stop 07/09/17 at 07:51; Status DC Fentanyl Citrate (Fentanyl 2ml Vial) 100 mcg STK-MED ONCE .ROUTE ; Start at 08:05; Stop 07/09/17 at 08:06; Status DC Neostigmine Methylsulfate (Bloxiverz) 10 mg STK-MED ONCE .ROUTE ; Start at 08:49; Stop 07/09/17 at 08:50; Status DC Glycopyrrolate (Robinul) 1 mg STK-MED ONCE .ROUTE ; Start 07/09/17 at 08:50; Stop 07/09/17 at 08:51; Status DC Desflurane (Suprane) 60 ml STK-MED ONCE IH ; Start 07/09/17 at 09:28; Stop at 09:29; Status DC Desflurane (Suprane) 90 ml STK-MED ONCE IH ; Start 07/09/17 at 09:28; Stop at 09:29; Status DC Propofol 20 ml @ As Directed STK-MED ONCE IV ; Start 07/09/17 at 09:31; Stop 07/09/17 at 09:32; Status DC Acetaminophen/ Hydrocodone Bitart (Lortab 7.5/325) 1 tab PRN Q3HRS PRN PO PAIN ; Start 07/09/17 at 10:00 Acetaminophen/ Hydrocodone Bitart (Lortab 10/325) 1 tab PRN Q3HRS PRN PO PAIN; Start 07/09/17 at 10:00 Tramadol HCl (Ultram) 50 mg PRN QID PRN PO PAIN Last administered on t 08:21; Start 07/09/17 at 10:00 Oxycodone/ Acetaminophen (Percocet 5/325) 1 tab PRN Q3HRS PRN PO PAIN; Start 07/09/17 at 10:00 Oxycodone/ Acetaminophen (Percocet 7.5/ 325) 1 tab PRN Q3HRS PRN PO PAIN; Start 07/09/17 at 10:00 Tramadol HCl (Ultram) 100 mg PRN Q3HRS PRN PO PAIN; Start 07/09/17 at 10:00 Morphine Sulfate 2 mg PRN Q1HR PRN IV PAIN; Start 07/09/17 at 10:00 Fentanyl Citrate (Fentanyl 2ml Vial) 25 mcg PRN Q1HR PRN IV PAIN; Start at 10:00 Diphenhydramine HCl (Benadryl) 25 mg PRN Q6HRS PRN IV ITCHING; Start 07/09/17 at 10:00 Warfarin Sodium (Coumadin) 7.5 mg 1X ONCE PO ; Start 07/09/17 at 16:00; Stop 07/09/17 at 16:01; Status UNV Warfarin Sodium (Coumadin Per Pharmacy) 1 each PRN DAILY PRN MC SEE COMMENTS Last administered on 07/12/17 11:24; Start 07/09/17 at 10:00 Multivitamins (Thera M Plus) 1 tab DAILY PO Last administered on 07/12/17 08: 40; Start 07/10/17 at 09:00 Senna/Docusate Sodium (Senna Plus) 1 tab DAILY PO Last administered on 08:40; Start 07/10/17 at 09:00 Ferrous Sulfate (Feosol) 325 mg BIDWMEALS PO Last administered on 07/12/17 08 :40; Start 07/09/17 at 17:00 Celecoxib (CeleBREX) 200 mg BID PO Last administered on 07/12/17 08:40; Start 07/09/17 at 21:00 Dextrose/Sodium Chloride 1,000 ml @ 100 mls/hr Q10H IV Last administered on 12:48; Start 07/09/17 at 11:30; Stop 07/10/17 at 06:52; Status DC Prochlorperazine Maleate (Compazine) 10 mg PRN Q4HRS PRN PO NAUSEA/VOMITING; Start 07/09/17 at 10:00 Metoclopramide HCl (Reglan Vial) 10 mg PRN Q4HRS PRN IV NAUSEA/VOMITING; Start 07/09/17 at 10:00 Magnesium Hydroxide (Milk Of Magnesia) 2,400 mg 1X PRN PRN PO CONSTIPATION; Start 07/10/17 at 06:00; Stop 07/11/17 at 05:59; Status DC Bisacodyl (Dulcolax Supp) 10 mg 1X PRN PRN MS CONSTIPATION; Start 07/10/17 at 16:00; Stop 07/11/17 at 15:59; Status DC Acetaminophen (Tylenol) 650 mg PRN Q4HRS PRN PO MILD PAIN / TEMP Last administered on 07/12/17 13:21; Start 07/09/17 at 10:00 Zolpidem Tartrate (Ambien) 5 mg PRN QHS PRN PO INSOMNIA, MAY REPEAT IN 1HR; Start 07/09/17 at 10:00 Calcium Carbonate/ Glycine (Tums) 500 mg PRN QID PRN PO INDIGESTION; Start at 10:00 Morphine Sulfate 4 mg PRN Q1HR PRN IV PAIN Last administered on 07/09/17 10: 40; Start 07/09/17 at 10:00 Morphine Sulfate 6 mg PRN Q1HR PRN IV PAIN; Start 07/09/17 at 10:00 Morphine Sulfate 8 mg PRN Q1HR PRN IV PAIN; Start 07/09/17 at 10:00 Ketorolac Tromethamine 30 mg/Bupivacaine HCl 20 ml/ Epinephrine HCl 0.5 mg/ Miscellaneous 43 ml @ 258 mls/hr Q12H INT ART Last administered on 07/10/17 05:29; Start 07/09/17 at 18:00; Stop 07/10/17 at 06:09; Status DC Sodium Chloride (Normal Saline Flush) 10 ml QSHIFT PRN IV AFTER MEDS AND BLOOD DRAWS; Start 07/09/17 at 10:00 Fentanyl Citrate (Fentanyl 2ml Vial) 50 mcg PRN Q1HR PRN IV PAIN; Start at 10:00 Prochlorperazine Edisylate (Compazine) 10 mg PRN Q4HRS PRN IV NAUSEA/VOMITING; Start 07/09/17 at 10:00 Dextrose (Dextrose 50%-Water Syringe) 12.5 gm PRN Q15MIN PRN IV SEE COMMENTS; Start 07/09/17 at 10:00 Cefazolin Sodium 3 gm/Dextrose 100 ml @ 200 mls/hr Q6H IV Last administered on 07/10/17 01:23; Start 07/09/17 at 13:30; Stop 07/10/17 at 01:59; Status DC Lisinopril (Prinivil) 40 mg DAILY PO Last administered on 07/12/17 08:42; Start 07/10/17 at 09:00 Metformin HCl (Glucophage) 1,000 mg BIDWMEALS PO Last administered on 08:40; Start 07/09/17 at 17:00 Simvastatin (Zocor) 10 mg QHS PO Last administered on 07/11/17 20:59; Start 07/09/17 at 21:00 Sotalol HCl (Betapace) 80 mg BID PO Last administered on 07/12/17 08:41; Start 07/09/17 at 21:00 Warfarin Sodium (Coumadin) 8 mg DAILY16 PO Last administered on 07/09/17 16: 33; Start 07/09/17 at 16:00; Stop 07/10/17 at 12:05; Status DC Warfarin Sodium (Coumadin) 10 mg 1X WARF ONCE PO Last administered on 16:38; Start 07/10/17 at 16:00; Stop 07/10/17 at 16:01; Status DC Warfarin Sodium (Coumadin) 10 mg 1X WARF ONCE PO Last administered on 16:43; Start 07/11/17 at 16:00; Stop 07/11/17 at 16:01; Status DC Warfarin Sodium (Coumadin) 10 mg 1X WARF ONCE PO Last administered on 15:00; Start 07/12/17 at 14:00; Stop 07/12/17 at 14:01; Status DC Active Scripts Active Reported Slow Fe (Ferrous Sulfate) 142 Mg Tablet.er 142 Mg PO DAILY LAST DOSE GIVEN: DATE:07/12/17 TIME:9:00 a.m. Glucosamine (Glucosamine Sulfate 2KCL) 1,000 Mg Tablet Unknown Dose PO Meds not given this hospital admission. May resume home medications as approved by Physician. Lisinopril 40 Mg Tablet 1 Tab PO DAILY LAST DOSE GIVEN: DATE:07/12/17 TIME:9:00 a.m. Simvastatin 10 Mg Tablet 1 Tab PO QHS LAST DOSE GIVEN: DATE:07/11/17 TIME:9:00 p.m. Sotalol (Sotalol Hcl) 80 Mg Tablet 1 Tab PO BID LAST DOSE GIVEN: DATE:07/12/17 TIME:9:00 a.m. Warfarin Sodium 4 Mg Tablet 8 Mg PO UD take 10 mg 07/13/17 and 07/14/17. Dr Huntley to dose. Next PT/INR bld draw 07/15/17 Metformin Hcl 1,000 Mg Tablet 1,000 Mg PO BIDWMEALS LAST DOSE GIVEN: DATE:07/12/17 TIME:8:30 a.m. Celebrex (Celecoxib) 200 Mg Capsule 200 Mg PO DAILY 0 Days LAST DOSE GIVEN: DATE:07/12/17 TIME:9:00 a.m. Allergies Allergies: Coded Allergies: azithromycin (Verified Allergy, Intermediate, Hives, 07/09/17) codeine (Verified Adverse Reaction, Intermediate, gi, 07/09/17) shellfish derived (Verified Adverse Reaction, Intermediate, 07/09/17) Physical Exam General: Alert, Oriented X3, Cooperative HEENT: PERRLA Lungs: Clear to auscultation Heart: Regular rate, Other (S1 and S2, positive click present, unchanged) Abdomen: Normal bowel sounds, Soft Extremities: No edema Vitals VITALS Vital Signs Date Time Temp Pulse Resp B/P (MAP) Pulse Ox O2 Delivery O2 Flow Rate FiO2 07/12/17 08:42 83 132/79 07/12/17 08:00 Room Air 07/12/17 06:04 98.6 18 96 98.6 Labs Labs Laboratory Tests Test 07/10/17 16:37 07/10/17 20:35 07/11/17 06:00 07/11/17 06:20 Glucose (Fingerstick) 138 mg/dL (70-99) 232 mg/dL (70-99) 187 mg/dL (70-99) Hemoglobin 10.7 g/dL (13.0-17.5) Hematocrit 32.7 % (39.0-53.0) Mean Corpuscular Hemoglobin Concent 33 g/dL (31-37) Prothrombin Time 16.4 SEC (11.7-14.0) Prothromb Time International Ratio 1.4 (0.8-1.1) Test 07/11/17 11:35 07/11/17 16:43 07/12/17 04:47 07/12/17 04:49 Glucose (Fingerstick) 136 mg/dL (70-99) 190 mg/dL (70-99) Prothrombin Time 16.9 SEC (11.7-14.0) Prothromb Time International Ratio 1.5 (0.8-1.1) Hemoglobin 11.4 g/dL (13.0-17.5) Hematocrit 34.4 % (39.0-53.0) Mean Corpuscular Hemoglobin Concent 33 g/dL (31-37) Test 07/12/17 06:12 Glucose (Fingerstick) 184 mg/dL (70-99) Laboratory Tests Test 07/11/17 16:43 07/12/17 04:47 07/12/17 04:49 07/12/17 06:12 Glucose (Fingerstick) 190 mg/dL (70-99) 184 mg/dL (70-99) Prothrombin Time 16.9 SEC (11.7-14.0) Prothromb Time International Ratio 1.5 (0.8-1.1) Hemoglobin 11.4 g/dL (13.0-17.5) Hematocrit 34.4 % (39.0-53.0) Mean Corpuscular Hemoglobin Concent 33 g/dL (31-37) Assessment/Plan Assessment/Plan The patient tolerated the surgery rather well. There are no cardiac issues at this time. The patient is compensated. The patient's INR is 1.5 therefore I would give him warfarin 10 mg by mouth today and tomorrow and Saturday and then on Saturday resume his normal dosing. Recheck INR on Saturday. The patient may be discharged home today. In my opinion there is no need to bridge him with Lovenox in view of his current INR. Thank you very much for asking me to participate in the care of this patient ABE HUNTLEY MD Jul 12, 2017 15:39
[2017-07-12 15:45] VITALS: BP 130/76
== END 2017-07-12 16:00 | disposition home or self-care (01) | DRG 470 ==
LOC: OPSVCIP 05:35 → 4 SOUTHEST 11:22
PROVIDERS: ADMIT Orthopaedic Surgery; ATTEND Orthopaedic Surgery
PROC: 3E0U33Z Introduction of Anti-inflammatory into Joints, Percutaneous Approach (ICD-10-PCS; 2017-07-09)
PROC: 0SRD0J9 Replacement of Left Knee Joint with Synthetic Substitute, Cemented, Open Approach (ICD-10-PCS; principal; 2017-07-09 07:10)
DX: M17.0 Bilateral primary osteoarthritis of knee (principal); I11.0 Hypertensive heart disease with heart failure; I50.9 Heart failure, unspecified; E11.9 Type 2 diabetes mellitus without complications; I35.0 Nonrheumatic aortic (valve) stenosis; K21.9 Gastro-esophageal reflux disease without esophagitis; Z79.01 Long term (current) use of anticoagulants; Z81.8 Family history of other mental and behavioral disorders; Z82.5 Family history of asthma and other chronic lower respiratory diseases; Z83.3 Family history of diabetes mellitus; Z95.2 Presence of prosthetic heart valve
CPT/HCPCS: 36415; 73560; 82962; 85014; 85018; 85610; 85730; 86850; 86900; 86901; C1713; J0171; J0330; J0690; J0780; J1040; J1100; J1885; J2250; J2270; J2405; J2704; J2710; J2795; J3010; J3260; J3370; J3490; J7030; J7120; S0028; 97116; 97150; 97530; 97535; A4461; C1769; J2001

== ENCOUNTER → 2018-04-14 | Outpatient (CLI) | payer BC ==
[2018-01-04 15:10] VITALS: BP 138/85
[~2018-04-14] MED LIST changes: +ACET500T33 PO; +FURO10VI IVP; +FURO40TA4 PO; +LISI-130 PO; -LISI40TA PO; -METF-620 PO; +METF10003 PO; +SOTA160T PO; +WARF-31 PO; +WARF4TAB64 PO; +WARF4TAB68 PO; -WARF4TAB7 PO
[2018-04-14 11:54] LABS: BASO % 0 % (0-3); EOS # 0.1 x10^3/uL (0.0-0.7); EOS % 1 % (0-3); HEMATOCRIT 38.6 % (39.0-53.0); LYMPH % 20 % (24-48); MEAN CORPUSCULAR HEMOGLOBIN 30 pg (25-35); MEAN CORPUSCULAR HGB CONC 34 g/dL (31-37); MEAN CORPUSCULAR VOLUME 88 fL (79-100); MONO # 0.9 x10^3/uL (0.0-1.1); MONO % 9 % (0-9); NEUT % 70 % (31-73); PLATELET COUNT 237 x10^3/uL (140-400); RED BLOOD COUNT 4.38 x10^6/uL (4.30-5.70)
[2018-04-14 11:58] LABS: BILIRUBIN,URINE NEGATIVE (NEG); CLARITY,URINE CLEAR; COLOR,URINE YELLOW; NITRITE,URINE NEGATIVE (NEG); PROTEIN,URINE NEGATIVE (NEG-TRACE); UROBILINOGEN,URINE 0.2 mg/dL (0.2 mg/dL)
[2018-04-14 12:03] LABS: ALBUMIN 3.6 g/dL (3.4-5.0); CALCIUM 8.6 mg/dL (8.5-10.1); CREATININE 0.9 mg/dL (0.7-1.3); GFR 86.4; POTASSIUM 4.2 mmol/L (3.5-5.1)
[2018-04-14 12:13] LABS: PROTHROMBIN TIME PATIENT 22.8 SEC (11.7-14.0)
[2018-04-14 12:15] LABS: BACTERIA,URINE 0 /HPF (0-FEW); SQUAMOUS EPITHELIAL CELL,UR OCC /LPF; WBC,URINE OCC /HPF (0-4)
[2018-04-15 02:21] LABS: HEMOGLOBIN A1C 7.1 % (4.8-5.6)
== END | disposition home or self-care (01) ==
LOC: SURGPAT 10:03
PROVIDERS: ATTEND Orthopaedic Surgery
DX: Z01.818 Encounter for other preprocedural examination (principal); M17.11 Unilateral primary osteoarthritis, right knee; I11.0 Hypertensive heart disease with heart failure; I50.9 Heart failure, unspecified; K21.9 Gastro-esophageal reflux disease without esophagitis; I48.0 Paroxysmal atrial fibrillation; E78.00 Pure hypercholesterolemia, unspecified; E11.9 Type 2 diabetes mellitus without complications; Z96.652 Presence of left artificial knee joint; Z95.0 Presence of cardiac pacemaker; Z87.891 Personal history of nicotine dependence; Z88.1 Allergy status to other antibiotic agents; Z88.8 Allergy status to other drugs, medicaments and biological substances; Z88.5 Allergy status to narcotic agent; Z88.6 Allergy status to analgesic agent; Z82.5 Family history of asthma and other chronic lower respiratory diseases; Z83.3 Family history of diabetes mellitus; Z81.8 Family history of other mental and behavioral disorders
CPT/HCPCS: 36415; 80048; 81001; 82040; 82306; 83036; 85025; 85610; 85651; 85730; 87641

== ENCOUNTER 2018-05-06 06:24 | Inpatient (IN) | payer BC ==
[2018-05-06] VITALS (11 sets, daily range): BP systolic 89–154; BP diastolic 54–92
[~2018-05-06] VITALS: Ht 188 cm; Wt 158.8 kg
[~2018-05-06 06:24] MED LIST changes: +CELECOXIB 100 MG CAPSULE. PO PRN; +HYDROcodone/APAP 7.5/325MG 1 TAB TABLET PO PRN; -METF10003 PO; +METF10007 PO; +TRANEXAMIC ACID 1,000 MG in IV NS 50ML -- 1ST BAG INJ ONE
[2018-05-06] MEDS ORDERED: fentaNYL PF VIAL 100 MCG/2 ML VIAL IV PRN ×5 (07:00→13:15)
[2018-05-06] MEDS ORDERED: LIDOCAINE 1% PF 2 ML VIAL. ID PRN ×2 (07:00)
[2018-05-06] MEDS ORDERED: KETOROLAC 30MG VIAL 30 MG, ROPIVacaine 0.5% PF 60 ML, EPINEPHrine 0.5 MG in IV NORMAL S... INT ART ONE (07:00)
[2018-05-06] MEDS ORDERED: MORPHINE SULFATE 2 MG/ML VIAL. IV PRN ×3 (07:00→13:15)
[2018-05-06] MEDS ORDERED: PROCHLORPERAZINE 10 MG/2 ML VIAL. IV PRN ×3 (07:00→13:15)
[2018-05-06] MEDS ORDERED: ONDANSETRON PF 4 MG/2 ML VIAL. IV PRN ×2 (07:00)
[2018-05-06] MEDS ORDERED: IV RINGERS,LACTATED 1000ML 1,000 ML IV SCH ×2 (07:00)
[2018-05-06] MEDS ORDERED: HYDROmorphone 2 MG/ML VIAL IV PRN ×2 (07:00)
[2018-05-06] MEDS ORDERED: ENOX40DI SQ (07:29)
[2018-05-06] MEDS ORDERED: TOBRAMYCIN POWDER 1.2 GM VIAL. ONE (07:45)
[2018-05-06] MEDS ORDERED: VANCOMYCIN 1 GM VIAL. ONE (07:45)
[2018-05-06 07:59] LABS: PROTHROMBIN TIME PATIENT 14.3 SEC (11.7-14.0)
[2018-05-06] MEDS ORDERED: MORPHINE SULFATE 5 MG, KETOROLAC 30MG VIAL 30 MG, ROPIVacaine 0.5% PF 60 ML, EPINEPHrin... INT ART ONE ×5 (08:00)
[2018-05-06] MEDS ORDERED: TRANEXAMIC ACID 1,000 MG in IV NS 50ML -- 2ND BAG INJ ONE (08:00)
[2018-05-06] MEDS ORDERED: PROPOFOL 20 ML IV ONE (08:21)
[2018-05-06] MEDS ORDERED: fentaNYL PF VIAL 100 MCG/2 ML VIAL ONE (08:21)
--- NOTE | 2018-05-06 09:43 | PDOC1 ---
History and Physical Date of Admission Date of Admission DATE: 05/06/18 TIME: 09:37 Identification/Chief Complaint Chief Complaint right knee pain Source Source: Chart review, Patient History of Present Illness History of Present Illness This 57-year-old man has had right knee pain for several years. He had a prior arthroscopy on this knee in 2015. He had a cortisone injection in 2016. He had a left total knee arthroplasty on 07/09/17 by me and is doing well with that knee. He would like to proceed with right total knee arthroplasty to relieve his pain and difficulty walking. Past Medical History Cardiovascular: AFIB, CHF, HTN, Aortic stenosis, Other Pulmonary: Asthma, Bronchitis GI: GERD Musculoskeletal: Osteoarthritis Endocrine: Diabetes Past Surgical History Past Surgical History Aortic valve implant 1997, right knee arthroscopy 2015, left total knee arthroplasty 2016 Past Surgical History: Total knee replacement, Other Family History Family History: Depression, Diabetes, Other Social History Smoke: No ALCOHOL: rare Drugs: None Current Problem List Problem List Osteoarthritis right knee Current Medications Current Medications Current Medications Morphine Sulfate 5 mg/Ketorolac Tromethamine 30 mg/Ropivacaine 60 ml/ Epinephrine HCl 0.5 mg/Sodium Chloride 100 ml @ 100 mls/hr 1X ONCE INT ART ; Start 05/06/18 at 08:00; Stop 05/06/18 at 08:00; Status DC Ondansetron HCl (Zofran) 4 mg PRN Q6HRS PRN IV NAUSEA/VOMITING; Start 05/06/18 at 07:00; Stop 05/07/18 at 06:59 Fentanyl Citrate (Fentanyl 2ml Vial) 25 mcg PRN Q5MIN PRN IV MILD PAIN; Start 05/06/18 at 07:00; Stop 05/07/18 at 06:59 Fentanyl Citrate (Fentanyl 2ml Vial) 50 mcg PRN Q5MIN PRN IV MODERATE TO SEVERE PAIN; Start 05/06/18 at 07:00; Stop 05/07/18 at 06:59 Morphine Sulfate (Morphine Sulfate) 1 mg PRN Q10MIN PRN IV SEVERE PAIN; Start 05/06/18 at 07:00; Stop 05/07/18 at 06:59 Ringer's Solution 1,000 ml @ 30 mls/hr Q24H IV ; Start 05/06/18 at 07:00; Stop 05/06/18 at 18:59 Lidocaine HCl (Xylocaine-Mpf 1% 2ml Vial) 2 ml PRN 1X PRN ID PRIOR TO IV START ; Start 05/06/18 at 07:00; Stop 05/07/18 at 06:59 Hydromorphone HCl (Dilaudid) 0.5 mg PRN Q10MIN PRN IV SEV PAIN, Second choice; Start 05/06/18 at 07:00; Stop 05/07/18 at 06:59 Prochlorperazine Edisylate (Compazine) 5 mg PACU PRN PRN IV NAUSEA, MRX1; Start 05/06/18 at 07:00; Stop 05/07/18 at 06:59 Ondansetron HCl (Zofran) 4 mg PRN Q6HRS PRN IV NAUSEA/VOMITING; Start 05/06/18 at 07:00; Stop 05/07/18 at 06:59; Status UNV Fentanyl Citrate (Fentanyl 2ml Vial) 25 mcg PRN Q5MIN PRN IV MILD PAIN; Start 05/06/18 at 07:00; Stop 05/07/18 at 06:59; Status UNV Fentanyl Citrate (Fentanyl 2ml Vial) 50 mcg PRN Q5MIN PRN IV MODERATE TO SEVERE PAIN; Start 05/06/18 at 07:00; Stop 05/07/18 at 06:59; Status UNV Morphine Sulfate (Morphine Sulfate) 1 mg PRN Q10MIN PRN IV SEVERE PAIN; Start 05/06/18 at 07:00; Stop 05/07/18 at 06:59; Status UNV Ringer's Solution 1,000 ml @ 30 mls/hr Q24H IV ; Start 05/06/18 at 07:00; Stop 05/06/18 at 18:59; Status UNV Lidocaine HCl (Xylocaine-Mpf 1% 2ml Vial) 2 ml PRN 1X PRN ID PRIOR TO IV START ; Start 05/06/18 at 07:00; Stop 05/07/18 at 06:59; Status UNV Hydromorphone HCl (Dilaudid) 0.5 mg PRN Q10MIN PRN IV SEV PAIN, Second choice; Start 05/06/18 at 07:00; Stop 05/07/18 at 06:59; Status UNV Prochlorperazine Edisylate (Compazine) 5 mg PACU PRN PRN IV NAUSEA, MRX1; Start 05/06/18 at 07:00; Stop 05/07/18 at 06:59; Status UNV Celecoxib (CeleBREX) 400 mg 1X PREOP PRN PO PRIOR TO PROCEDURE; Start 05/06/18 at 06:00; Stop 05/06/18 at 18:00 Acetaminophen/ Hydrocodone Bitart (Lortab 7.5/325) 2 tab 1X PREOP PRN PO PRIOR TO PROCEDURE Last administered on 05/06/18at 07:44; Start 05/06/18 at 06:00; Stop 05/06/18 at 18:00 Cefazolin Sodium/ Dextrose 50 ml @ 100 mls/hr 1X PREOP PRN IV PRIOR TO PROCEDURE; Start 05/06/18 at 06:00; Stop 05/06/18 at 18:00 Tranexamic Acid 1000 mg/Sodium Chloride 60 ml @ 60 mls/hr 1X PERIOP ONCE INJ ; Start 05/06/18 at 06:00; Stop 05/06/18 at 06:59; Status DC Tranexamic Acid 1000 mg/Sodium Chloride 60 ml @ 60 mls/hr 1X PERIOP ONCE INJ ; Start 05/06/18 at 08:00; Stop 05/06/18 at 08:59; Status DC Ketorolac Tromethamine 30 mg/Ropivacaine 60 ml/Epinephrine HCl 0.5 mg/Sodium Chloride 99.5 ml @ 99.5 mls/hr 1X ONCE INT ART ; Start 05/06/18 at 07:00; Stop 05/06/18 at 07:59; Status DC Propofol 20 ml @ As Directed STK-MED ONCE IV ; Start 05/06/18 at 08:21; Stop 07/13 at 08:22; Status DC Fentanyl Citrate (Fentanyl 2ml Vial) 100 mcg STK-MED ONCE .ROUTE ; Start at 08:21; Stop 05/06/18 at 08:22; Status DC Vancomycin HCl (Vancomycin) 1 gm STK-MED ONCE .ROUTE ; Start 05/06/18 at 07:45; Stop 05/06/18 at 08:46; Status DC Tobramycin Sulfate (Tobramycin Powder) 1.2 gm STK-MED ONCE .ROUTE ; Start at 07:45; Stop 05/06/18 at 08:46; Status DC Active Scripts Active Furosemide 40 Mg Tablet 40 Mg PO DAILY 30 Days Reported Lovenox (Enoxaparin Sodium) 40 Mg/0.4 Ml Disp.syrin 100 Mg SQ BID Tylenol Extra Strength (Acetaminophen) 500 Mg Tablet 650 Mg PO Q6HRS PRN Warfarin Sodium 5 Mg Tablet 8 Mg PO HS Slow Fe (Ferrous Sulfate) 142 Mg Tablet.er 45 Mg PO BID Metformin Hcl 1,000 Mg Tablet 1,000 Mg PO BID Sotalol (Sotalol Hcl) 160 Mg Tablet 160 Mg PO BID Lisinopril 40 Mg Tablet 1 Tab PO HS Simvastatin 10 Mg Tablet 1 Tab PO QHS LAST DOSE GIVEN: DATE:07/11/17 TIME:9:00 p.m. Celebrex (Celecoxib) 200 Mg Capsule 200 Mg PO DAILY 0 Days LAST DOSE GIVEN: DATE:07/12/17 TIME:9:00 a.m. Allergies Allergies: Coded Allergies: azithromycin (Verified Allergy, Intermediate, Hives, 05/06/18) codeine (Verified Adverse Reaction, Intermediate, gi, 05/06/18) shellfish derived (Verified Adverse Reaction, Intermediate, 05/06/18) ROS General: No: Chills, Night Sweats PSYCHOLOGICAL ROS: No: Disorientation, Hallucinations Eyes: No Double vision HEENT: No: Heacaches, Sore Throat Respiratory: YES: Shortness of breath; No: Cough Cardiovascular: No Chest Pain Gastrointestinal: No Nausea, No Vomiting, No Diarrhea Genitourinary: No Dysuria, No Hematuria Musculoskeletal: Yes Joint Pain, Yes Joint Stiffness Neurological: No Behavorial Changes Skin: No Mole Changes Physical Exam General: Alert, Cooperative HEENT: Atraumatic Lungs: Normal air movement Heart: RRR Abdomen: Soft, No tenderness Extremities: No clubbing, No cyanosis, No edema, Normal pulses, Other (right knee shows healed arthroscopy scars, mildly antalgic gait, trace varus alignment. No effusion. Tenderness on the medial lateral joint lines. Range of motion 0115 degrees. Crepitus with range of motion and pain at the extremes of motion. Stable to varus and valgus stress. Strength is 5/5 for quadriceps and hamstrings. Light touch sensation intact.) Vitals Vitals Vital Signs Date Time Temp Pulse Resp B/P (MAP) Pulse Ox O2 Delivery O2 Flow Rate FiO2 05/06/18 07:44 18 98 Room Air 05/06/18 07:35 97.8 62 144/80 97.8 Labs Labs Laboratory Tests Test 05/06/18 07:38 05/06/18 07:40 Glucose (Fingerstick) 162 mg/dL (70-99) Prothrombin Time 14.3 SEC (11.7-14.0) Prothromb Time International Ratio 1.2 (0.8-1.1) Activated Partial Thromboplast Time 34 SEC (24-38) Laboratory Tests Test 05/06/18 07:38 05/06/18 07:40 Glucose (Fingerstick) 162 mg/dL (70-99) Prothrombin Time 14.3 SEC (11.7-14.0) Prothromb Time International Ratio 1.2 (0.8-1.1) Activated Partial Thromboplast Time 34 SEC (24-38) Images Images Osteoarthritis of the right knee VTE Prophylaxis Ordered VTE Prophylaxis Devices: Yes VTE Pharmacological Prophylaxi: Yes Assessment/Plan Assessment/Plan We discussed the risks benefits and alternatives of proceeding with a right total knee arthroplasty. He is only 57 years old, we discussed the increased risk of revision. He has morbid obesity and we discussed the increased risks of revision, infection, blood clots, or other complications. He did well with his other knee. We discussed the potential risks of bleeding, infection, postoperative stiffness, instability, periprosthetic fracture, DVT, and PE. All of his questions were answered. He desires to proceed with right total knee arthroplasty to improve his pain with activity. He stopped his Coumadin nearly a week ago, and has been on a Lovenox bridge 100 mg subcutaneous twice a day. We will restart Lovenox and Coumadin postoperatively per cardiology instructions. He has a mechanical valve, and we are able to use tranexamic acid intraoperatively per Dr. Rodríguez. DOLORES VITAL MD May 06, 2018 09:43
[2018-05-06] MEDS ORDERED: SEVOFLURANE 61 TO 120 MINUTES. IH ONE (10:04)
[2018-05-06] MEDS ORDERED: DEXAMETHASONE SOD PHOS 20 MG/5 ML VIAL. ONE (10:04)
[2018-05-06] MEDS ORDERED: ceFAZolin SODIUM 1 GM VIAL ONE (10:12)
[2018-05-06] MEDS ORDERED: TRANEXAMIC ACID 1,000 MG/10 ML VIAL. INJ ONE (10:15)
[2018-05-06] MEDS ORDERED: KETOROLAC 30 MG/ML INJ FOR OR. INJ ONE (10:15)
[2018-05-06] MEDS ORDERED: VANCOMYCIN 1 GM VIAL. CEMENT ONE (10:15)
[2018-05-06] MEDS ORDERED: TOBRAMYCIN POWDER 1.2 GM VIAL. CEMENT ONE (10:15)
[2018-05-06] MEDS ORDERED: ONDANSETRON PF 4 MG/2 ML VIAL. ONE (11:12)
--- NOTE | 2018-05-06 12:58 | PDOC4 ---
Operative Note Operative Note Date of Procedure: May 06, 2018 Pre-Op Diagnosis: Osteoarthritis right knee Post-Op Diagnosis: Osteoarthritis right knee Procedure: right total knee arthroplasty Surgeon: Dolores Johnson MD Brine Mixer Operator: Sulema Smith PA-C Anesthesia: General EBL: 150 mL Specimens Obtained: right knee bone and soft tissue Complications: none Implant Company: [employer] Drains: hemovac plus pain catheter Tourniquet time: 80 Minutes Tourniquet Pressure: 350 mm Hg Indications for Procedure: Arthritis pain unrelieved by nonoperative management. Findings: Severe osteoarthritis with bone on bone contact at the trochlea and patella, and medially with tibial eburnation Implants used: Size 7 right bicruciate stabilized Journey II BCS Oxinium femoral component, size 7 right Journey nonporous tibial baseplate, size 7-8 9 mm right Journey II BCS XLPE constrainedarticular insert, 38 mm oval Lori II resurfacing patellar component Procedure in Detail: The patient was identified in the preoperative holding area, and the correct right lower extremity was marked by me. The patient was taken to the operating room where the patient was anesthetized by the Department of Anesthesia. Preoperative antibiotics were given intravenously. Tranexamic acid 1 g was given intravenously for intraoperative hemostasis. A "time-out" procedure was performed. The patient was positioned supine on the operative table with a tourniquet on the upper right thigh. The right lower limb was thoroughly prepped and draped in sterile fashion. An impervious stockinet and adhesive drape were used such that the skin was entirely covered. An Guevara leg marie was used. The operating team wore personal exhaust-ventilated hoods. The limb was elevated to exsanguinate it, and the tourniquet was inflated. A midline skin incision was made with a scalpel using the patella and tibial tubercle as landmarks. Electrocautery was used for hemostasis. My actuarial assistant used rake retractors. A medial parapatellar arthrotomy incision was used with extension into the distal quadriceps tendon. The patella was retracted laterally and Hohmann retractors were now used by my actuarial assistant. Excess synovium, the menisci, and the cruciate ligaments were resected sharply. The patella was assessed and excess synovium and osteophytes around the patellar articulation were removed. The patella was measured with a caliper, cut freehand with a saw using caliper measurements, sized, and then drilled for an oval three-pegged patella component. Periarticular anesthetic injection was used in the suprapatellar pouch and distal quadriceps muscle. Whitesides's line and the transepicondylar axis were marked on the femur. An intra-medullary 5 degree cutting guide was pinned to the femur, and a distal femoral cut was made with an oscillating saw. No additional distal femoral resection was required. My actuarial assistant held Hohmann retractors and an [facility] retractor to protect the medial and lateral collateral ligaments, the patellar tendon, the skin and the other soft tissues. A posterior referencing guide was applied with external rotation of 4 to match Whitesides line. A 5-in-1 Journey II cutting guide was then applied and pinned to the femur. The posterior, anterior, and all chamfer cuts were made with the oscillating saw. An extramedullary guide was pinned to the tibia and rotational alignment and the planned resection thickness assessed. An external alignment claudia was used to verify the planned cut in the varus-valgus plane and regarding posterior slope referencing the tibial tubercle, the tibial shaft, the ankle joint, and the second metatarsal. The upper tibia was cut made with an oscillating saw. My actuarial assistant held Hohmann retractors and a posterior cruciate ligament retractor to protect the medial and lateral collateral ligaments, the patellar tendon, the skin, the peroneal nerve and the other soft tissues. The upper tibia was sized with a trial baseplate. The posterior compartment was cleared of osteophytes and loose bodies. Periarticular anesthetic injection was used in the posterior compartment. The box cut for a posterior stabilized component was made. A preliminary reduction was performed with a trial femur, trial tibial baseplate and trial polyethylene. Soft-tissue balancing was now performed, and extension and rotation of the alignments was checked using a guide claudia in the tibial trial and a guide pin in the femur. No additional releases were required. The stability was assessed using different thicknesses of tibial articular surface to find satisfactory stability and good range of motion. The rotation of the tibial component was marked on the upper tibia. Final trial reduction was now performed verifying patella tracking and tibiofemoral stability and alignment. The tibia preparation was completed with a drill, saw, and fin punch at the previously noted rotation. The final implants were verified and opened. Outer gloves were changed by the operating team. The bone cuts were washed thoroughly with the Gopi InterPulse device and dried. I asked Ms. Smith to leave the room while the cement was mixed. Two packages of Staley + Nephew Rally HV bone cement were mixed in powdered form with Vancomycin 1gm and Tobramycin 1.2 gm. There was not a vacuum pedal in the room , so there was quite a delay to locate a pedal so that the cement could be vacuum mixed. The cement and antibiotics were vacuum-mixed with the monomer, and placed into a cement gun. The cut surfaces of the bone were thoroughly dried with Pride-tip suction and with laparotomy sponges for cement interdigitation. The final components were cemented into place. There was difficulty reducing the knee with the trial polyethylene partially or wholly related to the patient size, so additional cement mix was needed to cement the patella component. This caused another delay, while cement was located, mixed, and allowed to dry for 10 minutes before the tourniquet could be released. The knee was kept at full extension while the cement hardened, and excess cement was removed. Tranexamic acid 1 g was redosed intravenously for additional intraoperative hemostasis. The tourniquet was released, and electrocautery was used for hemostasis. A final periarticular anesthetic injection was used for pain relief. Ms. Smith returned. A final check of [id number] and stability was made, and the polyethylene implant final size was chosen. The polyethylene implant was secured to the tibial baseplate, and the knee was reduced a final time and range of motion and stability was confirmed. An intraoperative x-ray was taken to confirm alignment and to verify that there was no fracture. Thorough irrigation was used. Hemovac and pain catheter were used. The arthrotomy was closed with interrupted [id number] #1 PDS suture. The arthrotomy incision was then run with #1 STRATAFIX Symmetric PDS Plus Knotless suture. The subcutaneous tissues were closed with #2-0 Vicryl by my actuarial assistant. The skin was approximated with larissa by my actuarial assistant. The skin incision was then covered and reinforced with GUNNAR single use negative pressure wound therapy dressing Needle and sponge counts were correct. There were no apparent complications. The patient returned to the recovery room in stable condition. DOLORES JOHNSON MD May 06, 2018 12:58
[2018-05-06] MEDS: fentaNYL PF VIAL 100 MCG/2 ML VIAL IV PRN ×4 (13:11→14:18)
[2018-05-06] MEDS ORDERED: MORPHINE SULFATE 10 MG/ML VIAL. IV PRN (13:15)
[2018-05-06] MEDS ORDERED: ACETAMINOPHEN 325 MG TABLET. PO PRN (13:15)
[2018-05-06] MEDS ORDERED: HYDROcodone/APAP 7.5/325MG 1 TAB TABLET PO PRN (13:15)
[2018-05-06] MEDS ORDERED: traMADol 50 MG TABLET PO PRN (13:15)
[2018-05-06] MEDS ORDERED: PROCHLORPERAZINE 5 MG TABLET. PO PRN (13:15)
[2018-05-06] MEDS ORDERED: CALCIUM CARBONATE 500 MG TAB.CHEW PO PRN (13:15)
[2018-05-06] MEDS ORDERED: diphenhydrAMINE 50 MG/ML VIAL IV PRN (13:15)
[2018-05-06] MEDS ORDERED: ZOLPIDEM 5 MG TABLET. PO PRN (13:15)
[2018-05-06] MEDS ORDERED: 0.9 % SODIUM CHLORIDE 10 ML DISP.SYRIN. IV PRN (13:15)
[2018-05-06] MEDS ORDERED: HYDROcodone/APAP 10/325 1 TAB TABLET PO PRN (13:15)
[2018-05-06] MEDS ORDERED: MORPHINE SULFATE 4 MG/ML VIAL. IV PRN ×2 (13:15)
[2018-05-06] MEDS ORDERED: oxyCODONE/APAP 7.5/325 1 TAB TABLET PO PRN (13:15)
[2018-05-06] MEDS ORDERED: METOCLOPRAMIDE HCL 10 MG/2 ML VIAL. IV PRN (13:15)
[2018-05-06] MEDS ORDERED: oxyCODONE/APAP 5/325 1 TAB TABLET PO PRN (13:15)
[2018-05-06] MEDS ORDERED: DEXTROSE 50% 25 GM / 50ML DISP.SYRIN. IV PRN (13:15)
--- NOTE | 2018-05-06 13:22 | RAD ---
Portable right knee, 2 views, 05/06/2018: HISTORY: Postop evaluation A total knee prosthesis is in place in satisfactory position. A surgical drain overlies the operative site anteriorly. There is no evidence of a retained surgical instrument, needle or radiopaque sponge on these 2 views. Electronically signed by: Ag Beal MD (05/06/2018 1:19 PM) [facility]
[2018-05-06] MEDS ORDERED: WARFARIN 4 MG TABLET. PO SCH (16:00)
[2018-05-06] MEDS ORDERED: WARFARIN 7.5 MG TABLET. PO ONE (16:00)
[2018-05-06] MEDS: FERROUS SULFATE 325 MG TABLET. PO SCH (16:31)
[2018-05-06] MEDS: traMADol 50 MG TABLET PO PRN ×2 (16:31→20:59)
[2018-05-06] MEDS: SENNOSIDES/DOCUSATE 8.6/50MG TABLET. PO SCH (16:31)
[2018-05-06] MEDS: ceFAZolin SODIUM 3 GM in IV DEXTROSE 5% 100ML 100 ML IV SCH ×2 (16:34→21:56)
[2018-05-06] MEDS ORDERED: WARFARIN 4 MG TABLET. PO ONE (17:45)
[2018-05-06] MEDS: KETOROLAC 30MG VIAL 30 MG, BUPIVACAINE MPF 0.25% 20 ML, EPINEPHrine 0.5 MG in TOTAL VOL... INT ART SCH (18:14)
[2018-05-06] MEDS: IV DEXTROSE 5 %-0.45 % NACL 1,000 ML IV SCH ×2 (20:58→22:53)
[2018-05-06] MEDS: SIMVASTATIN 10 MG TABLET PO SCH (20:59)
[2018-05-06] MEDS: CELECOXIB 100 MG CAPSULE. PO SCH (20:59)
[2018-05-06] MEDS: SOTALOL 80 MG TABLET. PO SCH (22:49)
[2018-05-06] MEDS: LISINOPRIL 20 MG TABLET PO SCH (22:49)
[2018-05-07 02:56] VITALS: BP 109/65
[2018-05-07] MEDS: ceFAZolin SODIUM 3 GM in IV DEXTROSE 5% 100ML 100 ML IV SCH (04:37)
[2018-05-07 05:20] LABS: HEMATOCRIT 32.6 % (39.0-53.0); HEMOGLOBIN 10.9 g/dL (13.0-17.5)
[2018-05-07 05:21] VITALS: BP 104/64
[2018-05-07 05:21] LABS: PROTHROMBIN TIME PATIENT 15.1 SEC (11.7-14.0)
[2018-05-07] MEDS: KETOROLAC 30MG VIAL 30 MG, BUPIVACAINE MPF 0.25% 20 ML, EPINEPHrine 0.5 MG in TOTAL VOL... INT ART SCH (05:52)
[2018-05-07] MEDS ORDERED: MAGNESIUM HYDROXIDE 2,400 MG/30 ML ORAL.SUSP. PO PRN (06:00)
[2018-05-07] MEDS: FERROUS SULFATE 325 MG TABLET. PO SCH ×2 (08:00→16:18)
[2018-05-07] MEDS: MULTIVITAMIN with MINERAL TABLET. PO SCH (08:05)
[2018-05-07] MEDS: CELECOXIB 100 MG CAPSULE. PO SCH ×2 (08:06→20:36)
[2018-05-07] MEDS: SENNOSIDES/DOCUSATE 8.6/50MG TABLET. PO SCH (08:06)
[2018-05-07] MEDS: SOTALOL 80 MG TABLET. PO SCH ×2 (08:10→20:36)
[2018-05-07] MEDS: traMADol 50 MG TABLET PO PRN ×4 (08:10→21:37)
[2018-05-07 08:17] VITALS: BP 92/64
[2018-05-07] MEDS: FUROSEMIDE 40 MG TABLET. PO SCH (08:17)
--- NOTE | 2018-05-07 10:01 | PDOC ---
PROGRESS NOTES Subjective Subjective Pain controlled. Cierra RN, stated pt's Hemovac accidentally pulled out and IAC broke off. Objective Vital Signs Vital Signs Date Time Temp Pulse Resp B/P (MAP) Pulse Ox O2 Delivery O2 Flow Rate FiO2 05/07/18 08:17 73 92/64 (73) 05/07/18 08:10 Room Air 05/07/18 05:21 98.3 18 95 98.3 05/06/18 20:59 2.5 Physical Exam Dressing intact and dry. Hemovac and pain catheter have been removed. Thigh and calf soft with negative Ainsley's sign. Good active range of motion of foot including dorsiflexion and plantar flexion. No signs of compartment syndrome, DVT or neurovascular injury. Labs Laboratory Tests Test 05/06/18 07:38 05/06/18 07:40 05/06/18 13:06 05/06/18 16:25 Glucose (Fingerstick) 162 mg/dL (70-99) 187 mg/dL (70-99) 164 mg/dL (70-99) Prothrombin Time 14.3 SEC (11.7-14.0) Prothromb Time International Ratio 1.2 (0.8-1.1) Activated Partial Thromboplast Time 34 SEC (24-38) Test 05/06/18 21:08 05/07/18 04:05 05/07/18 06:55 Glucose (Fingerstick) 167 mg/dL (70-99) 143 mg/dL (70-99) Hemoglobin 10.9 g/dL (13.0-17.5) Hematocrit 32.6 % (39.0-53.0) Mean Corpuscular Hemoglobin Concent 33 g/dL (31-37) Prothrombin Time 15.1 SEC (11.7-14.0) Prothromb Time International Ratio 1.2 (0.8-1.1) Laboratory Tests Test 05/06/18 13:06 05/06/18 16:25 05/06/18 21:08 05/07/18 04:05 Glucose (Fingerstick) 187 mg/dL (70-99) 164 mg/dL (70-99) 167 mg/dL (70-99) Hemoglobin 10.9 g/dL (13.0-17.5) Hematocrit 32.6 % (39.0-53.0) Mean Corpuscular Hemoglobin Concent 33 g/dL (31-37) Prothrombin Time 15.1 SEC (11.7-14.0) Prothromb Time International Ratio 1.2 (0.8-1.1) Test 05/07/18 06:55 Glucose (Fingerstick) 143 mg/dL (70-99) Imaging Postop X-rays reviewed by me. Satisfactory TKA alignment, without apparent complications. Assessment Assessment POD 1 right TKA Plan Plan of Care Continue POC including DVT ppx and therapy. DVT ppx per Dr. Rodríguez - Lovenox 100mg SQ BID x3 days postop plus home warfarin dose. CANDICE JONES May 07, 2018 10:01
[2018-05-07] MEDS ORDERED: BISACODYL 10 MG SUPP.RECT. PR PRN (16:00)
[2018-05-07] MEDS ORDERED: WARFARIN 4 MG TABLET. PO SCH (16:00)
[2018-05-07] MEDS: WARFARIN 4 MG TABLET. PO SCH (16:15)
[2018-05-07 17:51] VITALS: BP 116/68
[2018-05-07 20:31] VITALS: BP 113/73
[2018-05-07] MEDS: LISINOPRIL 20 MG TABLET PO SCH (20:36)
[2018-05-07] MEDS: SIMVASTATIN 10 MG TABLET PO SCH (20:36)
[2018-05-08 06:08] VITALS: BP 116/70
[2018-05-08 06:16] LABS: HEMATOCRIT 29.1 % (39.0-53.0); HEMOGLOBIN 9.6 g/dL (13.0-17.5)
[2018-05-08 06:35] LABS: PROTHROMBIN TIME PATIENT 18.3 SEC (11.7-14.0)
[2018-05-08] MEDS: FERROUS SULFATE 325 MG TABLET. PO SCH ×3 (08:00→08:25)
[2018-05-08] MEDS: SENNOSIDES/DOCUSATE 8.6/50MG TABLET. PO SCH (08:18)
[2018-05-08] MEDS: MULTIVITAMIN with MINERAL TABLET. PO SCH (08:18)
[2018-05-08] MEDS: traMADol 50 MG TABLET PO PRN ×3 (08:19→22:27)
[2018-05-08] MEDS: FUROSEMIDE 40 MG TABLET. PO SCH (08:19)
[2018-05-08] MEDS: CELECOXIB 100 MG CAPSULE. PO SCH ×2 (08:19→21:17)
[2018-05-08 11:32] VITALS: BP 124/76
[2018-05-08] MEDS: SOTALOL 80 MG TABLET. PO SCH ×2 (11:44→21:18)
--- NOTE | 2018-05-08 12:39 | PDOC ---
CANDICE JONES 05/08/18 1239: PROGRESS NOTES Subjective Subjective Pain worse today, but controlled with tramadol. Objective Vital Signs Vital Signs Date Time Temp Pulse Resp B/P (MAP) Pulse Ox O2 Delivery O2 Flow Rate FiO2 05/08/18 11:44 78 124/76 05/08/18 11:32 22 Room Air 05/08/18 06:08 98.1 97 98.1 05/06/18 20:59 2.5 Physical Exam Postop dressing and pain catheter have been removed. Bloody drainage on GUNNAR. Calf soft and nontender with negative Ainsley's sign. Good AROM of ankle. Minimal erythema/warmth. Labs Laboratory Tests Test 05/06/18 13:06 05/06/18 16:25 05/06/18 21:08 05/07/18 04:05 Glucose (Fingerstick) 187 mg/dL (70-99) 164 mg/dL (70-99) 167 mg/dL (70-99) Hemoglobin 10.9 g/dL (13.0-17.5) Hematocrit 32.6 % (39.0-53.0) Mean Corpuscular Hemoglobin Concent 33 g/dL (31-37) Prothrombin Time 15.1 SEC (11.7-14.0) Prothromb Time International Ratio 1.2 (0.8-1.1) Test 05/07/18 06:55 05/07/18 11:32 05/07/18 16:16 05/07/18 20:33 Glucose (Fingerstick) 143 mg/dL (70-99) 155 mg/dL (70-99) 150 mg/dL (70-99) 138 mg/dL (70-99) Test 05/08/18 05:56 05/08/18 06:25 05/08/18 11:23 Hemoglobin 9.6 g/dL (13.0-17.5) Hematocrit 29.1 % (39.0-53.0) Mean Corpuscular Hemoglobin Concent 33 g/dL (31-37) Prothrombin Time 18.3 SEC (11.7-14.0) Prothromb Time International Ratio 1.6 (0.8-1.1) Glucose (Fingerstick) 162 mg/dL (70-99) 175 mg/dL (70-99) Laboratory Tests Test 05/07/18 16:16 05/07/18 20:33 05/08/18 05:56 05/08/18 06:25 Glucose (Fingerstick) 150 mg/dL (70-99) 138 mg/dL (70-99) 162 mg/dL (70-99) Hemoglobin 9.6 g/dL (13.0-17.5) Hematocrit 29.1 % (39.0-53.0) Mean Corpuscular Hemoglobin Concent 33 g/dL (31-37) Prothrombin Time 18.3 SEC (11.7-14.0) Prothromb Time International Ratio 1.6 (0.8-1.1) Test 05/08/18 11:23 Glucose (Fingerstick) 175 mg/dL (70-99) Assessment Assessment POD #2 TKA Plan Plan of Care Continue POC including DVT ppx and therapy. Will change GUNNAR after afternoon therapy. Discharge planning for tomorrow to home. Dr. Johnson saw and examined the patient as well. DOLORES JOHNSON MD 05/09/18 1159: Attending Co-Sign Attending Co-Sign The patient was seen and interviewed as well as examined at the bedside. The postop x-rays show satisfactory TKA alignment. The case was discussed. Agree with the plan of care. CANDICE JONES May 08, 2018 12:39 DOLORES JOHNSON MD May 09, 2018 11:59
[2018-05-08] MEDS: WARFARIN 4 MG TABLET. PO SCH (17:22)
[2018-05-08 17:53] VITALS: BP 118/58
[2018-05-08] MEDS: SIMVASTATIN 10 MG TABLET PO SCH (21:16)
[2018-05-08] MEDS: LISINOPRIL 20 MG TABLET PO SCH (21:17)
[2018-05-09 05:47] VITALS: BP 125/79
[2018-05-09] MEDS ORDERED: POLYETHYLENE GLYCOL 3350 17 GM PACKET. PO PRN (07:30)
[2018-05-09 07:39] LABS: HEMATOCRIT 24.6 % (39.0-53.0); HEMOGLOBIN 8.3 g/dL (13.0-17.5)
[2018-05-09 07:48] LABS: PROTHROMBIN TIME PATIENT 17.6 SEC (11.7-14.0)
[2018-05-09] MEDS: FUROSEMIDE 40 MG TABLET. PO SCH (07:51)
[2018-05-09] MEDS: MULTIVITAMIN with MINERAL TABLET. PO SCH (07:51)
[2018-05-09] MEDS: SENNOSIDES/DOCUSATE 8.6/50MG TABLET. PO SCH (07:51)
[2018-05-09] MEDS: CELECOXIB 100 MG CAPSULE. PO SCH (07:51)
[2018-05-09] MEDS: SOTALOL 80 MG TABLET. PO SCH (07:53)
[2018-05-09 07:55] VITALS: BP 125/80
[2018-05-09] MEDS: FERROUS SULFATE 325 MG TABLET. PO SCH (08:00)
--- NOTE | 2018-05-09 09:02 | PDOC ---
PROGRESS NOTES Subjective Subjective No complaints. Planning on discharge today to home. Objective Vital Signs Vital Signs Date Time Temp Pulse Resp B/P (MAP) Pulse Ox O2 Delivery O2 Flow Rate FiO2 05/09/18 07:55 71 125/80 (95) 05/09/18 05:47 97.9 20 98 Room Air 97.9 05/06/18 20:59 2.5 Physical Exam GUNNAR intact and dry. Good AROM ankle. Calf soft and nontender. Minimal warmth or erythema. NVI. Labs Laboratory Tests Test 05/07/18 11:32 05/07/18 16:16 05/07/18 20:33 05/08/18 05:56 Glucose (Fingerstick) 155 mg/dL (70-99) 150 mg/dL (70-99) 138 mg/dL (70-99) Hemoglobin 9.6 g/dL (13.0-17.5) Hematocrit 29.1 % (39.0-53.0) Mean Corpuscular Hemoglobin Concent 33 g/dL (31-37) Prothrombin Time 18.3 SEC (11.7-14.0) Prothromb Time International Ratio 1.6 (0.8-1.1) Test 05/08/18 06:25 05/08/18 11:23 05/08/18 22:23 05/09/18 06:05 Glucose (Fingerstick) 162 mg/dL (70-99) 175 mg/dL (70-99) 166 mg/dL (70-99) Hemoglobin 8.3 g/dL (13.0-17.5) Hematocrit 24.6 % (39.0-53.0) Mean Corpuscular Hemoglobin Concent 34 g/dL (31-37) Prothrombin Time 17.6 SEC (11.7-14.0) Prothromb Time International Ratio 1.5 (0.8-1.1) Test 05/09/18 06:18 Glucose (Fingerstick) 168 mg/dL (70-99) Laboratory Tests Test 05/08/18 11:23 05/08/18 22:23 05/09/18 06:05 05/09/18 06:18 Glucose (Fingerstick) 175 mg/dL (70-99) 166 mg/dL (70-99) 168 mg/dL (70-99) Hemoglobin 8.3 g/dL (13.0-17.5) Hematocrit 24.6 % (39.0-53.0) Mean Corpuscular Hemoglobin Concent 34 g/dL (31-37) Prothrombin Time 17.6 SEC (11.7-14.0) Prothromb Time International Ratio 1.5 (0.8-1.1) Assessment Assessment POD #3 TKA Plan Plan of Care Discharge planning for today. Continue PT and DVT prophylaxis. F/U 10-14 days in office. CANDICE JONES May 09, 2018 09:02
[2018-05-09] MEDS ORDERED: TRAM50TA PO (10:20)
--- NOTE | 2018-05-09 11:39 | PDOC3 ---
Discharge Summary Visit Information Date of Admission: May 06, 2018 Date of Discharge: May 09, 2018 Admitting Diagnosis: right knee osteoarthritis Brief Hospital Course Allergies Allergies Coded Allergies Type Severity Reaction Last Updated Verified azithromycin Allergy Intermediate Hives 05/06/18 Yes codeine Adverse Reaction Intermediate gi 05/06/18 Yes shellfish derived Adverse Reaction Intermediate 05/06/18 Yes Vital Signs Vital Signs Date Time Temp Pulse Resp B/P (MAP) Pulse Ox O2 Delivery O2 Flow Rate FiO2 05/09/18 07:55 71 125/80 (95) 05/09/18 05:47 97.9 20 98 Room Air 97.9 Lab Results Laboratory Tests Test 05/07/18 16:16 05/07/18 20:33 05/08/18 05:56 05/08/18 06:25 Glucose (Fingerstick) 150 mg/dL (70-99) 138 mg/dL (70-99) 162 mg/dL (70-99) Hemoglobin 9.6 g/dL (13.0-17.5) Hematocrit 29.1 % (39.0-53.0) Mean Corpuscular Hemoglobin Concent 33 g/dL (31-37) Prothrombin Time 18.3 SEC (11.7-14.0) Prothromb Time International Ratio 1.6 (0.8-1.1) Test 05/08/18 11:23 05/08/18 22:23 05/09/18 06:05 05/09/18 06:18 Glucose (Fingerstick) 175 mg/dL (70-99) 166 mg/dL (70-99) 168 mg/dL (70-99) Hemoglobin 8.3 g/dL (13.0-17.5) Hematocrit 24.6 % (39.0-53.0) Mean Corpuscular Hemoglobin Concent 34 g/dL (31-37) Prothrombin Time 17.6 SEC (11.7-14.0) Prothromb Time International Ratio 1.5 (0.8-1.1) Laboratory Tests Test 05/08/18 22:23 05/09/18 06:05 05/09/18 06:18 Glucose (Fingerstick) 166 mg/dL (70-99) 168 mg/dL (70-99) Hemoglobin 8.3 g/dL (13.0-17.5) Hematocrit 24.6 % (39.0-53.0) Mean Corpuscular Hemoglobin Concent 34 g/dL (31-37) Prothrombin Time 17.6 SEC (11.7-14.0) Prothromb Time International Ratio 1.5 (0.8-1.1) Brief Hospital Course 57 year old male who presented with knee osteoarthritis, for elective total knee arthroplasty. The patient underwent total knee arthroplasty under general anesthesia the day of admission. Perioperative antibiotics and DVT prophylaxis were used. Postoperatively physical therapy and case management were consulted. The patient progressed and is stable for discharge. Discharge Information Condition at Discharge: Stable Follow Up: Weeks (2) Disposition/Orders: D/C to Home Scheduled Celecoxib (Celebrex), 200 MG PO DAILY, (Reported) Enoxaparin Sodium (Lovenox), 100 MG SQ BID, (Reported) Ferrous Sulfate (Slow Fe), 45 MG PO BID, (Reported) Furosemide (Furosemide), 40 MG PO DAILY Lisinopril (Lisinopril), 1 TAB PO HS, (Reported) Metformin Hcl (Metformin Hcl), 1,000 MG PO BID, (Reported) Simvastatin (Simvastatin), 1 TAB PO QHS, (Reported) Sotalol Hcl (Sotalol), 160 MG PO BID, (Reported) Warfarin Sodium (Warfarin Sodium), 8 MG PO HS, (Reported) Scheduled PRN Acetaminophen (Tylenol Extra Strength), 650 MG PO Q6HRS PRN for PAIN, (Reported) Tramadol Hcl (Tramadol Hcl), 50-100 MG PO PRN Q4-6HRS PRN for PAIN, (Reported) Patient Instructions Patient Instructions Patient Instructions Continue to WBAT with walker. Keep dressing dry and intact. F/U with [facility] in 10-14 days. Call for appointment. Physical therapy for TKA Continue DVT prophylaxis with Coumadin, home dose. CANDICE JONES May 09, 2018 11:39
[2018-05-09] MEDS ORDERED: WARFARIN 5 MG TABLET. PO ONE (12:00)
--- NOTE | 2018-05-09 13:07 | DISCH ---
DISCHARGE WITH HOME HEALTH DISCHARGE INFORMATION: Discharge Date: May 09, 2018 Condition on Discharge: Stable CODE STATUS: Code Status: Full HOME HEALTH: Face to Face: I certify this patient is under my care and that I, or a nurse practitioner or physician's assistant superintendent working with me, had a face to face encounter that meets the physician face to face encounter requirements with this patient on []. Physical Therapy For: Evalulation/Treatment Occupational Therapy For: Evaluation/Treatment POST DISCHARGE ORDERS: Activity Instructions for Disc: Walk in house Weight Bearing Status after Di: No restrictions, Full weight bearing, As tolerated Bathing Instructions: Shower-keep dressing dry, No Tub Bath until see Wound/Incision Care: Ice to area for comfort, Keep wound/cast CDI, Keep wound elevated, Other, see below CHECKS AFTER DISCHARGE: Checks after discharge: Check blood press - daily, Check blood sugar, ac/hs, Weigh Yourself Daily Comment: Dr. Rodríguez is managing coumadin ; maintain betw FOLLOW-UP: Follow Up With: call [phone] for a 2 week post op appt with Dr. Johnson Warfarin Follow UP: Dr. Rodríguez is managing coumadin/lovenox call if ??? TREATMENT/EQUIPMENT ORDERS: Adaptive Equipment Issued: None CERTIFICATION STATEMENT: Certification Statement: Certification Statement: Based on the above finding, I certify that this patient is confined to the home and needs intermittent mcc care, physical therapy and/or speech therapy, or continues to need occupational therapy.~ This patient is under my care, and I have initiated the establishment of the plan of care.~ This patient will be followed by myself or a community physician who will periodically review the plan of care. Home Meds Active Scripts Furosemide (FUROSEMIDE) 40 Mg Tablet, 40 MG PO DAILY for 30 Days, #30 TAB Prov:ELISA MAYO MD 01/04/18 Reported Medications Tramadol Hcl (TRAMADOL HCL) 50 Mg Tablet, 50-100 MG PO PRN Q4-6HRS PRN for PAIN , #80 TAB 0 Refills 05/09/18 Enoxaparin Sodium (LOVENOX) 40 Mg/0.4 Ml Disp.syrin, 100 MG SQ BID, DIS.SYR 05/06/18 Acetaminophen (TYLENOL EXTRA STRENGTH) 500 Mg Tablet, 650 MG PO Q6HRS PRN for PAIN, TAB 04/14/18 Warfarin Sodium (WARFARIN SODIUM) 5 Mg Tablet, 8 MG PO HS for blood thinner, TAB 04/14/18 Ferrous Sulfate (Slow Fe) 142 Mg Tablet.er, 45 MG PO BID, TAB.SR 04/14/18 Metformin Hcl (METFORMIN HCL) 1,000 Mg Tablet, 1000 MG PO BID for ANTI-DIABETIC , TAB 0 Refills 01/02/18 Sotalol Hcl (SOTALOL) 160 Mg Tablet, 160 MG PO BID for heart/atr fib, TAB 01/02/18 Lisinopril (LISINOPRIL) 40 Mg Tablet, 1 TAB PO HS for blood pressure, #30 TAB 5 Refills 01/02/18 Simvastatin (SIMVASTATIN) 10 Mg Tablet, 1 TAB PO QHS, #30 TAB 5 Refills LAST DOSE GIVEN: DATE:07/11/17 TIME:9:00 p.m. 05/15/16 Celecoxib (CELEBREX) 200 Mg Capsule, 200 MG PO DAILY for 0 Days LAST DOSE GIVEN: DATE:07/12/17 TIME:9:00 a.m. 01/06/14 CANDICE JONES May 09, 2018 13:07
[2018-05-09] MEDS: traMADol 50 MG TABLET PO PRN (15:07)
--- NOTE | 2018-05-09 16:10 | PATHOLOGY ---
[facility] Accession Number: [id number] . 01 Material submitted: . RIGHT KNEE BONE AND TISSUE . 01 Clinical history: . None provided . 02 Diagnosis: "Right knee bone and tissue", removal: - Degenerative osteoarthritis. - Portions of synovium with focal mild chronic inflammation. (SKM:john; 05/08/2018) QMS/05/08/2018 . 02 Electronically signed: . Nael Tao MD, Pathologist NPI- [id number] . 01 Gross description: . Received in formalin labeled "Jl Wiggins, right knee bone and tissue," are multiple segments of bone, including tibial plateau, measuring 11.3 x 9.8 x 1.7 cm in aggregate dimensions. Scant attached soft tissue and possible meniscus are present. The specimen displays focal eburnation of the articular surfaces. Employment Law Specialist bone and soft tissue are submitted in cassette A1, following decalcification. ([facility]; 05/07/2018) XDC/XDC . 02 Pathologist provided ICD-10: M17.11, M65.861 . 02 CPT . 675917, 164198 Specimen Comment: A courtesy copy of this report has been sent to Specimen Comment: [phone], . Specimen Comment: Report sent to and Performed at: 01 [facility] [address], [place] [id number] MD Satish Montero MD Phone: [phone] Performed at: 02 [facility] [address] [place], [place] [id number] MD Ian Brenner MD Phone: [phone]
== END 2018-05-09 15:30 | disposition home or self-care (01) | DRG 470 ==
LOC: OPSVCIP 06:24 → 4 SOUTHEST 14:29
PROVIDERS: ADMIT Orthopaedic Surgery; ATTEND Orthopaedic Surgery
PROC: 0SRC069 Replacement of Right Knee Joint with Oxidized Zirconium on Polyethylene Synthetic Substitute, Cemented, Open Approach (ICD-10-PCS; principal; 2018-05-06 09:45)
DX: M17.11 Unilateral primary osteoarthritis, right knee (principal); Z68.41 Body mass index [BMI] 40.0-44.9, adult; E66.01 Morbid (severe) obesity due to excess calories; I11.0 Hypertensive heart disease with heart failure; I50.9 Heart failure, unspecified; E11.9 Type 2 diabetes mellitus without complications; K21.9 Gastro-esophageal reflux disease without esophagitis; J45.909 Unspecified asthma, uncomplicated; I48.91 Unspecified atrial fibrillation; I35.0 Nonrheumatic aortic (valve) stenosis; Z81.8 Family history of other mental and behavioral disorders; Z83.3 Family history of diabetes mellitus; Z88.6 Allergy status to analgesic agent; Z88.1 Allergy status to other antibiotic agents; Z91.013 Allergy to seafood
CPT/HCPCS: 36415; 73560; 82962; 85014; 85018; 85610; 85730; 86850; 86900; 86901; 88305; 88311; A7015; C1713; J0171; J0690; J1100; J1650; J1885; J2270; J2405; J2704; J2795; J3010; J3260; J3370; J3490; J7030; J7120; 97116; 97150; 97530; 97535; A4461; C1769

== ENCOUNTER 2018-06-04 06:19 | Day surgery (SDC) | payer BC ==
[~2018-06-04] VITALS: Ht 188 cm; Wt 158.8 kg
[~2018-06-04 06:19] MED LIST changes: +BUPIVAC MPF-EPI 0.5%-1:200000 30 ML VIAL. ONE; -CELECOXIB 100 MG CAPSULE. PO PRN; -HYDROcodone/APAP 7.5/325MG 1 TAB TABLET PO PRN; +TRAM50TA PO; -TRANEXAMIC ACID 1,000 MG in IV NS 50ML -- 1ST BAG INJ ONE; +ceFAZolin SODIUM 3 GM in IV DEXTROSE 5% 100ML 100 ML IV PRN
[2018-06-04] MEDS ORDERED: IV RINGERS,LACTATED 1000ML 1,000 ML IV SCH (07:00)
[2018-06-04] MEDS ORDERED: fentaNYL PF VIAL 100 MCG/2 ML VIAL IV PRN ×2 (07:00)
[2018-06-04] MEDS ORDERED: LIDOCAINE 1% PF 2 ML VIAL. ID PRN (07:00)
[2018-06-04] MEDS ORDERED: ONDANSETRON PF 4 MG/2 ML VIAL. IV PRN (07:00)
[2018-06-04] MEDS ORDERED: PROCHLORPERAZINE 10 MG/2 ML VIAL. IV PRN (07:00)
[2018-06-04] MEDS ORDERED: fentaNYL PF VIAL 100 MCG/2 ML VIAL ONE ×2 (07:41→09:40)
[2018-06-04] MEDS ORDERED: ONDANSETRON PF 4 MG/2 ML VIAL. ONE (07:41)
[2018-06-04] MEDS ORDERED: DEXAMETHASONE SOD PHOS 20 MG/5 ML VIAL. ONE (07:41)
[2018-06-04] MEDS ORDERED: MIDAZOLAM HCL/PF 2 MG/2 ML VIAL. ONE (07:41)
[2018-06-04] MEDS ORDERED: PROPOFOL 20 ML IV ONE (07:41)
[2018-06-04] MEDS ORDERED: SEVOFLURANE 16 TO 30 MINUTES. IH ONE (09:10)
--- NOTE | 2018-06-04 09:34 | PDOC4 ---
Operative Note Operative Note Date of Procedure: June 04, 2018 Pre-Op Diagnosis: right knee incisional dehiscence, with open wound Post-Op Diagnosis: same Procedure: Debridement and closure, 6 cm open wound, skin and subcutaneous tissue Surgeon: Dolores Johnson MD Facilitator: Sulema Smith PA-C Anesthesia: General EBL: 10 mL Specimens Obtained: Knee joint aspiration, for cell count with differential , Gram stain, and cultures including aerobic, anaerobic, fungal, and AFB Complications: none Drains: none Findings: Superficial wound dehiscence, 6 cm open wound with superficial hematoma Indications for Procedure: The patient is a 57-year-old man who had total knee arthroplasty last month. He came to the office on Saturday with an area of his incision that had opened. He is otherwise doing well with his recovery. I recommended irrigation and debridement in the operating room, aspiration of the knee joint to determine if there is any deep infection, and likely closure of the incisional dehiscence. We discussed the potential of incomplete joint irrigation and polyethylene exchange if there is evidence of deep extension. The patient and I discussed the risks, benefits and alternatives of surgery. All of his questions about surgery were answered and he desired to proceed. Written consent was obtained. Procedure in Detail: The patient was identified in the preoperative holding area. The correct right lower extremity was marked by me. The patient was taken to the operating room where general anesthesia was used. The patient was positioned supine on the operating table. Preoperative antibiotics were given intravenously. A timeout procedure was performed. A tourniquet was applied to the right thigh. The limb was prepared in sterile fashion with Betadine. Sterile drapes were applied. An impervious stockinette was used over the lower part of the leg. Sulema the tool grinding technician, and I scrubbed, hooded, gowned, and gloved. Under sterile technique I aspirated the knee joint and retrieved about 20 mL of pink watery fluid which was sent for the above tests. Purple top tube was used for the cell count with differential, and the remaining specimen was placed in a specimen cup for Gram stain and cultures. The open wound was now debrided, which included only small amounts of skin, small amounts of subcutaneous tissue, and subcutaneous hematoma. This is at the lower part of the original total knee incision, and is 6 cm in length. There was no purulence. Rongeurs, and curettes were used along with digital debridement of the hematoma. Healthy granulation tissue was seen. There is no tissue loss or tissue destruction. The patellar tendon is still deep to the area of exposure and was not visualized and has additional tissue and granulation covering the patella tendon.. With digital exploration there is no palpable extension to the knee joint. The [place] [employer] sales was used and saline was irrigated throughout the area of the hematoma, which extends a couple of centimeters in each direction from the 6 cm open wound. Additional Betadine was now used, over the skin, and throughout the area of the hematoma, and then the Betadine was rinsed with [place] [employer] sales and saline. There was minimal bleeding, and electrocautery was not needed for hemostasis. Final irrigation and skin cleansing was performed with saline. Outer gloves were changed. I then reapproximated the area of incisional dehiscence with 2-0 Vicryl interrupted sutures in the subcutaneous tissue, and 2-0 nylon mattress sutures in the skin. Xeroform and sterile dressings were applied. Needle and sponge counts were correct. There were no apparent complications. I placed the patient in a knee immobilizer, and we should keep the knee straight until the sutures are able to be removed, which should help prevent recurrent dehiscence. The patient returned to recovery in good condition. DOLORES JOHNSON MD Jun 04, 2018 09:34
[2018-06-04 10:25] VITALS: BP 116/74
--- NOTE | 2018-06-04 11:23 | PDOC1 ---
History and Physical Date of Admission Date of Admission DATE: 06/04/18 Identification/Chief Complaint Chief Complaint right knee incision dehiscence Source Source: Chart review History of Present Illness History of Present Illness The patient is a 57 year old male who is 3 weeks status post right total knee arthroplasty, 05/06/18. He states he noticed the incision had opened up when he took off the steri strips over the weekend. He has noticed a foul odor coming from the knee. Past Medical History Cardiovascular: AFIB, CHF, HTN, Aortic stenosis, Other Pulmonary: Asthma, Bronchitis GI: GERD Musculoskeletal: Osteoarthritis Endocrine: Diabetes Past Surgical History Past Surgical History: Total knee replacement (right TKA 05/06/18, left TKA ), Other (aortic valve implant - 1997) Family History Family History: Chronic Bronchitis, Depression, Diabetes, Other Social History Smoke: No ALCOHOL: rare Drugs: None Current Medications Current Medications Current Medications Ondansetron HCl (Zofran) 4 mg PRN Q6HRS PRN IV NAUSEA/VOMITING; Start at 07:00; Stop 06/04/18 at 10:34; Status DC Fentanyl Citrate (Fentanyl 2ml Vial) 25 mcg PRN Q5MIN PRN IV MILD PAIN; Start 06/04/18 at 07:00; Stop 06/04/18 at 10:34; Status DC Fentanyl Citrate (Fentanyl 2ml Vial) 50 mcg PRN Q5MIN PRN IV MODERATE TO SEVERE PAIN Last administered on 06/04/18at 09:45; Start 06/04/18 at 07:00; Stop 06/04/18 at 10:34; Status DC Ringer's Solution 1,000 ml @ 30 mls/hr Q24H IV Last administered on at 07:00; Start 06/04/18 at 07:00; Stop 06/04/18 at 10:34; Status DC Lidocaine HCl (Xylocaine-Mpf 1% 2ml Vial) 2 ml PRN 1X PRN ID IV START; Start 06/04/18 at 07:00; Stop 06/04/18 at 10:34; Status DC Prochlorperazine Edisylate (Compazine) 5 mg PACU PRN PRN IV NAUSEA, MRX1; Start 06/04/18 at 07:00; Stop 06/04/18 at 10:34; Status DC Cefazolin Sodium 3 gm/Dextrose 100 ml @ 200 mls/hr 1X PREOP PRN IV PRIOR TO PROCEDURE Last administered on 06/04/18at 08:35; Start 06/04/18 at 06:00; Stop 06/04/18 at 10:34; Status DC Bupivacaine HCl/ Epinephrine Bitart (Sensorcain-Mpf Epi 0.5%-1:[id number]) 30 ml STK -MED ONCE .ROUTE ; Start 06/04/18 at 06:00; Stop 06/04/18 at 07:01; Status DC Dexamethasone Sodium Phosphate (Decadron) 20 mg STK-MED ONCE .ROUTE ; Start 06/12 at 07:41; Stop 06/04/18 at 07:42; Status DC Ondansetron HCl (Zofran) 4 mg STK-MED ONCE .ROUTE ; Start 06/04/18 at 07:41; Stop 06/04/18 at 07:42; Status DC Propofol 20 ml @ As Directed STK-MED ONCE IV ; Start 06/04/18 at 07:41; Stop 06/04/18 at 07:42; Status DC Midazolam HCl (Versed) 2 mg STK-MED ONCE .ROUTE ; Start 06/04/18 at 07:41; Stop 06/04/18 at 07:42; Status DC Fentanyl Citrate (Fentanyl 2ml Vial) 100 mcg STK-MED ONCE .ROUTE ; Start at 07:41; Stop 06/04/18 at 07:42; Status DC Sevoflurane (Ultane) 15 ml STK-MED ONCE IH ; Start 06/04/18 at 09:10; Stop 06/12 at 09:11; Status DC Fentanyl Citrate (Fentanyl 2ml Vial) 100 mcg STK-MED ONCE .ROUTE ; Start at 09:40; Stop 06/04/18 at 09:41; Status DC Active Scripts Active Furosemide 40 Mg Tablet 40 Mg PO DAILY 30 Days Reported Tramadol Hcl 50 Mg Tablet 50-100 Mg PO PRN Q4-6HRS PRN Tylenol Extra Strength (Acetaminophen) 500 Mg Tablet 650 Mg PO Q6HRS PRN Warfarin Sodium 5 Mg Tablet 8 Mg PO HS Slow Fe (Ferrous Sulfate) 142 Mg Tablet.er 45 Mg PO BID Metformin Hcl 1,000 Mg Tablet 1,000 Mg PO BID Sotalol (Sotalol Hcl) 160 Mg Tablet 160 Mg PO BID Lisinopril 40 Mg Tablet 1 Tab PO HS Simvastatin 10 Mg Tablet 1 Tab PO QHS LAST DOSE GIVEN: DATE:07/11/17 TIME:9:00 p.m. Celebrex (Celecoxib) 200 Mg Capsule 200 Mg PO DAILY 0 Days LAST DOSE GIVEN: DATE:07/12/17 TIME:9:00 a.m. Allergies Allergies: Coded Allergies: azithromycin (Verified Allergy, Intermediate, Hives, 06/03/18) codeine (Verified Adverse Reaction, Intermediate, gi, 06/03/18) shellfish derived (Verified Adverse Reaction, Intermediate, 06/03/18) Physical Exam General: Alert, Oriented X3, Cooperative, No acute distress HEENT: Atraumatic, EOMI Lungs: Normal air movement Heart: RRR Abdomen: Soft Extremities: Other (skin as described above. There is minimal erythema and warmth, consistent with recent total knee replacement. The calf is soft and nontender, with a negative Ainsley's sign. Good plantarflexion and dorsiflexion. There is no evidence of infection, DVT, or neurovascular injury) Skin: No rashes, No breakdown, Other (right knee incision dehiscence at the distal portion, approximately 8cm by 4cm.) Neuro: Normal speech, Sensation intact Psych/Mental Status: Mental status NL, Mood NL Vitals Vitals Vital Signs Date Time Temp Pulse Resp B/P (MAP) Pulse Ox O2 Delivery O2 Flow Rate FiO2 06/04/18 10:25 76 20 116/74 96 Room Air 06/04/18 10:00 98.4 98.4 06/04/18 09:22 10 Labs Labs Laboratory Tests Test 06/04/18 06:55 06/04/18 09:27 Glucose (Fingerstick) 158 mg/dL (70-99) 139 mg/dL (70-99) Laboratory Tests Test 06/04/18 06:55 06/04/18 09:27 Glucose (Fingerstick) 158 mg/dL (70-99) 139 mg/dL (70-99) VTE Prophylaxis Ordered VTE Prophylaxis Devices: Yes VTE Pharmacological Prophylaxi: Yes Assessment/Plan Assessment/Plan Right knee incision dehiscence. The patient is four weeks status post right total knee arthroplasty on 05/06/18. The distal portion of the incision has dehisced and there is now a foul odor coming from the knee. Dr. Johnson recommended returning to the OR for a debridement and closure and the patient agrees. We will also aspirate the knee joint while he is under anesthesia and send for cultures. He will begin doxycycline after surgery. Followup on 06/12/18. CANDICE JONES Jun 04, 2018 11:23
[2018-06-04 12:47] LABS: BF CLARITY TURBID; BF COLOR RED; BF SOURCE SYNOVIAL
[2018-06-04 12:48] LABS: BF MON % 3 %; BF PMN % 97 %; BF RBC COUNT 25300 /cmm; BF WBC COUNT 3700 /cmm
== END 2018-06-04 10:25 | disposition home or self-care (01) ==
LOC: SURG 06:19
PROVIDERS: ATTEND Orthopaedic Surgery
DX: T81.31XA Disruption of external operation (surgical) wound, not elsewhere classified, initial encounter (principal); L76.32 Postprocedural hematoma of skin and subcutaneous tissue following other procedure; Z88.1 Allergy status to other antibiotic agents; Z88.5 Allergy status to narcotic agent; Z91.013 Allergy to seafood; I48.91 Unspecified atrial fibrillation; I11.0 Hypertensive heart disease with heart failure; I50.9 Heart failure, unspecified; J45.909 Unspecified asthma, uncomplicated; K21.9 Gastro-esophageal reflux disease without esophagitis; M19.90 Unspecified osteoarthritis, unspecified site; E11.9 Type 2 diabetes mellitus without complications; Z96.653 Presence of artificial knee joint, bilateral; Z95.4 Presence of other heart-valve replacement; Z83.3 Family history of diabetes mellitus; Z81.8 Family history of other mental and behavioral disorders; Z83.6 Family history of other diseases of the respiratory system; Z72.89 Other problems related to lifestyle; Z79.899 Other long term (current) drug therapy; Z79.84 Long term (current) use of oral hypoglycemic drugs; Y83.8 Other surgical procedures as the cause of abnormal reaction of the patient, or of later complication, without mention of misadventure at the time of the procedure; Y92.89 Other specified places as the place of occurrence of the external cause; Z98.890 Other specified postprocedural states
CPT/HCPCS: 13160; 82962; 87071; 87075; 87102; 87116; 89050; J1100; J2250; J2405; J2704; J3010; J3490; A4461; C1769

== ENCOUNTER → 2018-09-22 | Outpatient (CLI) | payer BC ==
[2018-07-18 11:00] VITALS: BP 122/70
[~2018-09-22] MED LIST changes: +ACET325T21 PO; -BUPIVAC MPF-EPI 0.5%-1:200000 30 ML VIAL. ONE; +DAPT350V IV; +DOXY100C2 PO; +LACT1CAP24 PO; +MERO1VIA IV; -ceFAZolin SODIUM 3 GM in IV DEXTROSE 5% 100ML 100 ML IV PRN
== END | disposition home or self-care (01) ==
LOC: LAB 15:30
PROVIDERS: ATTEND Orthopaedic Surgery
DX: Z47.33 Aftercare following explantation of knee joint prosthesis (principal); Z96.653 Presence of artificial knee joint, bilateral
CPT/HCPCS: 36415; 85651; 86140

== ENCOUNTER → 2018-12-15 | Outpatient (CLI) | payer BC ==
[2018-07-18 11:00] VITALS: BP 122/70
[2018-12-15 12:02] LABS: BASO % 0 % (0-3); EOS # 0.1 x10^3/uL (0.0-0.7); EOS % 1 % (0-3); HEMATOCRIT 36.8 % (39.0-53.0); HEMOGLOBIN 11.7 g/dL (13.0-17.5); LYMPH % 18 % (24-48); MEAN CORPUSCULAR HEMOGLOBIN 26 pg (25-35); MEAN CORPUSCULAR HGB CONC 32 g/dL (31-37); MEAN CORPUSCULAR VOLUME 81 fL (79-100); MONO # 1.1 x10^3/uL (0.0-1.1); MONO % 10 % (0-9); NEUT # 7.6 x10^3uL (1.8-7.7); NEUT % 71 % (31-73); PLATELET COUNT 264 x10^3/uL (140-400); RED BLOOD COUNT 4.54 x10^6/uL (4.30-5.70); RED CELL DISTRIBUTION WIDTH 16.2 % (11.5-14.5); WHITE BLOOD COUNT 10.8 x10^3/uL (4.0-11.0)
[2018-12-15 12:24] LABS: ALBUMIN 3.6 g/dL (3.4-5.0); DIRECT BILIRUBIN 0.1 mg/dL (0.0-0.2); GFR 76.2; TOTAL BILIRUBIN 0.3 mg/dL (0.2-1.0); TOTAL PROTEIN 7.5 g/dL (6.4-8.2)
== END | disposition home or self-care (01) ==
LOC: LAB 11:27
PROVIDERS: ATTEND Internal Medicine Infectious Disease
DX: T84.59XA Infection and inflammatory reaction due to other internal joint prosthesis, initial encounter (principal); Y83.1 Surgical operation with implant of artificial internal device as the cause of abnormal reaction of the patient, or of later complication, without mention of misadventure at the time of the procedure; Y92.89 Other specified places as the place of occurrence of the external cause
CPT/HCPCS: 36415; 80076; 82565; 84520; 85025; 85651

== ENCOUNTER → 2019-03-26 | Outpatient (CLI) | payer BC ==
[2018-07-18 11:00] VITALS: BP 122/70
[2019-03-26 07:53] LABS: BASO # 0.1 x10^3/uL (0.0-0.2); BASO % 1 % (0-3); EOS # 0.1 x10^3/uL (0.0-0.7); EOS % 2 % (0-3); HEMATOCRIT 37.9 % (39.0-53.0); LYMPH # 1.7 x10^3/uL (1.0-4.8); LYMPH % 17 % (24-48); MEAN CORPUSCULAR HEMOGLOBIN 26 pg (25-35); MEAN CORPUSCULAR HGB CONC 32 g/dL (31-37); MEAN CORPUSCULAR VOLUME 83 fL (79-100); MONO # 0.8 x10^3/uL (0.0-1.1); MONO % 8 % (0-9); NEUT # 7.3 x10^3/uL (1.8-7.7); NEUT % 73 % (31-73); PLATELET COUNT 251 x10^3/uL (140-400); RED BLOOD COUNT 4.58 x10^6/uL (4.30-5.70); RED CELL DISTRIBUTION WIDTH 16.9 % (11.5-14.5)
[2019-03-26 08:25] LABS: ALBUMIN 3.3 g/dL (3.4-5.0); ALBUMIN/GLOBULIN RATIO 0.9 (1.0-1.7); CALCIUM 8.6 mg/dL (8.5-10.1); CREATININE 1.1 mg/dL (0.7-1.3); GFR 68.3; TOTAL BILIRUBIN 0.4 mg/dL (0.2-1.0); TOTAL PROTEIN 7.1 g/dL (6.4-8.2)
== END | disposition home or self-care (01) ==
LOC: LAB 07:29
PROVIDERS: ATTEND Internal Medicine Infectious Disease
DX: T84.53XA Infection and inflammatory reaction due to internal right knee prosthesis, initial encounter (principal); Y83.1 Surgical operation with implant of artificial internal device as the cause of abnormal reaction of the patient, or of later complication, without mention of misadventure at the time of the procedure; Y92.89 Other specified places as the place of occurrence of the external cause
CPT/HCPCS: 36415; 80053; 85025; 85651

== ENCOUNTER → 2019-06-12 | Outpatient (CLI) | payer BC ==
[2018-07-18 11:00] VITALS: BP 122/70
[~2019-06-12] MED LIST changes: -ACET-1574; +ACET-1871
--- NOTE | 2019-06-12 10:08 | CARD ---
MR#: [id number] Date of Study: 06/12/2019 Ordering Physician: GIRISH SHERIFF, Referring Physician: GIRISH SHERIFF, Tech: Flavia Vargas APPROVED REPORT EXAM: Two-dimensional and M-mode echocardiogram with Doppler and color Doppler. Other Information Quality : AverageHR: 74bpm Rhythm : Pacemaker INDICATION Aortic Valve Disease Surgery/Intervention Pacemaker: Date: 2015 RISK FACTORS Hypertension Hyperlipidemia Diabetes 2D DIMENSIONS RVDd2.8 (2.9-3.5cm)Left Atrium(2D)4.8 (1.6-4.0cm) IVSd1.7 (0.7-1.1cm)Aortic Root(2D)3.8 (2.0-3.7cm) LVDd6.4 (3.9-5.9cm)LVOT Diameter2.6 (1.8-2.4cm) PWd1.5 (0.7-1.1cm)LVDs4.1 (2.5-4.0cm) FS (%) 36.8 %SV137.3 ml LVEF(%)65.5 (>50%) Aortic Valve AoV Peak Jean Marie.243.1cm/sAoV VTI47.2cm AO Peak GR.23.6mmHgLVOT Peak Jean Marie.61.6cm/s LVOT VTI 13.51cmAO Mean GR.14mmHg LEA (VMAX)0.71vs4UIP (VTI)1.55cm2 Mitral Valve MV E Vubustfh24.4cm/sMV DECEL [id number] MV A Hhhdsegv76.7cm/sMV ALE43bn E/A Ratio1.0MVA (PHT)3.81cm2 TDI E/Lateral E'7.0E/Medial E'11.1 Pulmonary Valve PV Peak Kicqwqhg437.2cm/sPV Peak Grad.5mmHg Tricuspid Valve TR P. Ycqkoeoy312yx/sRAP [id number] TR Peak Gr.27maVgSSNY20lhMy Pulmonary Vein S1 Jybdssve79.8cm/sD2 Lzwsfgng00.4cm/s PVa [id number] LEFT VENTRICLE The Left Ventricle is mildly dilated. There is moderate concentric left ventricular hypertrophy. The left ventricular systolic function is mildly impaired. The Ejection Fraction is 40-45%. Wall motion c onsistent with conduction abnormality. Transmitral Doppler flow pattern is Grade II-pseudonormal fill ing dynamics. RIGHT VENTRICLE The right ventricle is mildly dilated. There is normal right ventricular wall thickness. The right ve ntricular systolic function is normal. ATRIA The left atrium is borderline dilated. The right atrium is mildly dilated. The interatrial septum is intact with no evidence for an atrial septal defect or patent foramen ovale as noted on 2-D or Dopple r imaging. AORTIC VALVE Doppler and Color Flow revealed trace aortic regurgitation. Calculated aortic valve area is 1.5 cm2 w ith maximum pressure gradient of 24 mmHg and mean pressure gradient of 15 mmHg. There is a mechanical aortic valve prosthesis. The prosthetic aortic valve appears normal. MITRAL VALVE The mitral valve is normal in structure and function. There is no evidence of mitral valve prolapse. There is no mitral valve stenosis. Doppler and Color-flow revealed trace mitral regurgitation. TRICUSPID VALVE The tricuspid valve is not well visualized. Doppler and Color Flow revealed trace tricuspid regurgita tion with an esimated PAP of 30 mmHg. There is no tricuspid valve stenosis. PULMONIC VALVE The pulmonic valve is not well visualized. Doppler and Color Flow revealed no pulmonic valvular regur gitation. GREAT VESSELS The aortic root is normal in size. The IVC is normal in size and collapses >50% with inspiration. PERICARDIAL EFFUSION There is no evidence of significant pericardial effusion. Critical Notification Critical Value: No <Conclusion> The left ventricular systolic function is mildly impaired. The Ejection Fraction is 40-45%. The mechanical prosthetic aortic valve appears well seated and functioning well. Mean pressure gradi ent of 15 mmHg. Trace mitral regurgitation. Trace tricuspid regurgitation with an esimated PAP of 30 mmHg. There is no evidence of significant pericardial effusion. Signed by : Tyree Willett, Electronically Approved : 06/12/2019 10:07:59
== END | disposition home or self-care (01) ==
LOC: ECHO 08:09
PROVIDERS: ATTEND Internal Medicine Cardiovascular Disease
DX: I35.8 Other nonrheumatic aortic valve disorders (principal); I11.0 Hypertensive heart disease with heart failure; E78.5 Hyperlipidemia, unspecified; E11.9 Type 2 diabetes mellitus without complications; Z95.2 Presence of prosthetic heart valve
CPT/HCPCS: 93306

== ENCOUNTER → 2019-06-15 | Outpatient (CLI) | payer BC ==
[2018-07-18 11:00] VITALS: BP 122/70
[2019-06-15 07:47] LABS: BASO # 0.1 x10^3/uL (0.0-0.2); BASO % 1 % (0-3); EOS # 0.1 x10^3/uL (0.0-0.7); EOS % 1 % (0-3); HEMATOCRIT 39.2 % (39.0-53.0); HEMOGLOBIN 12.6 g/dL (13.0-17.5); LYMPH # 1.7 x10^3/uL (1.0-4.8); LYMPH % 15 % (24-48); MEAN CORPUSCULAR HEMOGLOBIN 27 pg (25-35); MEAN CORPUSCULAR HGB CONC 32 g/dL (31-37); MEAN CORPUSCULAR VOLUME 84 fL (79-100); MONO # 0.9 x10^3/uL (0.0-1.1); MONO % 8 % (0-9); NEUT # 8.3 x10^3/uL (1.8-7.7); NEUT % 75 % (31-73); PLATELET COUNT 260 x10^3/uL (140-400); RED BLOOD COUNT 4.68 x10^6/uL (4.30-5.70); RED CELL DISTRIBUTION WIDTH 15.3 % (11.5-14.5)
[2019-06-15 08:07] LABS: ALBUMIN 3.4 g/dL (3.4-5.0); CREATININE 1.1 mg/dL (0.7-1.3); DIRECT BILIRUBIN 0.1 mg/dL (0.0-0.2); GFR 68.3; TOTAL BILIRUBIN 0.4 mg/dL (0.2-1.0); TOTAL PROTEIN 7.3 g/dL (6.4-8.2)
== END | disposition home or self-care (01) ==
LOC: LAB 07:21
PROVIDERS: ATTEND Internal Medicine Infectious Disease
DX: T84.59XA Infection and inflammatory reaction due to other internal joint prosthesis, initial encounter (principal); Y83.8 Other surgical procedures as the cause of abnormal reaction of the patient, or of later complication, without mention of misadventure at the time of the procedure; Y92.89 Other specified places as the place of occurrence of the external cause
CPT/HCPCS: 36415; 80076; 82565; 84520; 85025; 85651

== ENCOUNTER → 2020-03-01 | Outpatient (CLI) | payer BC ==
[2018-07-18 11:00] VITALS: BP 122/70
[~2020-03-01] MED LIST changes: -MERO1VIA IV; +MERO1VIA22 IV; +SIMV10TA15 PO; -SIMV10TA3 PO; +SIMV20TA18 PO; -SIMV20TA3 PO
== END | disposition home or self-care (01) ==
LOC: LAB 12:42
PROVIDERS: ATTEND Internal Medicine Gastroenterology
DX: Z01.818 Encounter for other preprocedural examination (principal); Z11.59 Encounter for screening for other viral diseases
CPT/HCPCS: U0003-CS

== ENCOUNTER → 2020-03-04 | Day surgery (SDC) | payer BC ==
[~2020-03-04] MED LIST changes: +DAPA5TAB PO; +GLIP5TAB10 PO; +IV RINGERS,LACTATED 1000ML 1,000 ML IV SCH; +LIDOCAINE 2% PF 5 ML VIAL. ONE; +PROPOFOL 10 MG/ML (20ML) VIAL. IV ONE; +VITA0.4T8 PO
[2020-03-04 09:40] VITALS: BP 97/56
== END ==
LOC: ENDOS 07:40
PROVIDERS: ATTEND Internal Medicine Gastroenterology
DX: R19.7 Diarrhea, unspecified (principal); K57.30 Diverticulosis of large intestine without perforation or abscess without bleeding; K64.0 First degree hemorrhoids; F15.90 Other stimulant use, unspecified, uncomplicated; I10 Essential (primary) hypertension; E78.00 Pure hypercholesterolemia, unspecified; E11.9 Type 2 diabetes mellitus without complications; Z88.8 Allergy status to other drugs, medicaments and biological substances; Z91.040 Latex allergy status; Z72.89 Other problems related to lifestyle; Z87.39 Personal history of other diseases of the musculoskeletal system and connective tissue; Z79.84 Long term (current) use of oral hypoglycemic drugs
CPT/HCPCS: 45378; 82962; J2704

== ENCOUNTER → 2021-10-10 | Outpatient (CLI) | payer OTHER ==
[2020-03-04 09:40] VITALS: BP 97/56
[~2021-10-10] MED LIST changes: -DOXY100C2 PO; +DOXY100C3 PO; -IV RINGERS,LACTATED 1000ML 1,000 ML IV SCH; -LIDOCAINE 2% PF 5 ML VIAL. ONE; -LISI-334 PO; +LISI20TA18 PO; -PROPOFOL 10 MG/ML (20ML) VIAL. IV ONE
--- NOTE | 2021-10-10 19:03 | CARD ---
MR#: [id number] Date of Study: 10/10/2021 Ordering Physician: GIRISH SHERIFF, Referring Physician: GIRISH SHERIFF, Tech: Jomar Bennett [facility] APPROVED REPORT EXAM: Two-dimensional and M-mode echocardiogram with Doppler and color Doppler. Other Information Quality : FairHR: 72bpm Rhythm : NSR INDICATION Aortic Valve Disease Surgery/Intervention Status/Post Aortic Valve Replacement: Mechanical RISK FACTORS Obesity 2D DIMENSIONS Left Atrium(2D)4.7 (1.6-4.0cm)IVSd1.5 (0.7-1.1cm) LVDd7.1 (3.9-5.9cm)LVOT Diameter2.2 (1.8-2.4cm) PWd1.5 (0.7-1.1cm)LVDs5.1 (2.5-4.0cm) FS (%) 28.5 %SV140.8 ml LVEF(%)53.5 (>50%) Aortic Valve AoV Peak Jean Marie.218.1cm/sAoV VTI49.2cm AO Peak GR.19.0mmHgLVOT Peak Jean Marie.96.0cm/s AO Mean GR.11mmHgAVA (VMAX)1.69cm2 Mitral Valve MV E Ettudibj679.6cm/sMV E Peak Gr.5mmHg MV DECEL [id number] A Zeiwcwfi77.6cm/s MV E Mean Gr.2mmHgE/A Ratio1.5 Pulmonary Valve PV Peak Juqjbwmd70.7cm/s Tricuspid Valve TR P. Izomgkak514iy/sTR Peak Gr.20mmHg Pulmonary Vein S1 Kktstoco28.0cm/sD2 Qrtapuuo98.5cm/s LEFT VENTRICLE The Left Ventricle is moderately dilated. There is moderate concentric left ventricular hypertrophy. The systolic function is mildly impaired. The Ejection Fraction is 45-50%. Septal motion consistent w ith post-operative state. Otherwise, there is mild global hypokinesis. Transmitral Doppler flow patte rn is Grade II-pseudonormal filling dynamics. No left ventricle thrombus noted on this study. There i s no ventricular septal defect visualized. There is no left ventricular aneurysm. There is no mass no dionisio in the left ventricle. RIGHT VENTRICLE The right ventricle is normal size. There is normal right ventricular wall thickness. The right ventr icular systolic function is normal. ATRIA The left atrium is mildly dilated. The right atrium size is normal. The interatrial septum is intact with no evidence for an atrial septal defect or patent foramen ovale as noted on 2-D or Doppler imagi ng. AORTIC VALVE Doppler and Color Flow revealed trace aortic regurgitation. Calculated aortic valve area is 1.8 cm2 w ith maximum pressure gradient of 20 mmHg and mean pressure gradient of 10 mmHg. There is a mechanical aortic valve prosthesis. The prosthetic aortic valve appears well seated. MITRAL VALVE Mitral annular calcification is mild. There is no evidence of mitral valve prolapse. There is no mitr al valve stenosis. Doppler and Color-flow revealed trace mitral regurgitation. TRICUSPID VALVE The tricuspid valve is normal in structure and function. Doppler and Color Flow revealed trace tricus pid regurgitation. The PA pressure was estimated at 30 mmHg. There is no tricuspid valve prolapse or vegetation. There is no tricuspid valve stenosis. PULMONIC VALVE The pulmonic valve is not well seen. Doppler and Color Flow revealed no pulmonic valvular regurgitati on. There is no pulmonic valvular stenosis. GREAT VESSELS The aortic root is dilated at 4.7 cm The ascending aorta is dilated at 4.9 cm. The pulmonary artery i s normal. The IVC is normal in size and collapses >50% with inspiration. PERICARDIAL EFFUSION There is no pleural effusion. There is no evidence of significant pericardial effusion. Critical Notification Critical Value: No <Conclusion> There is moderate concentric left ventricular hypertrophy. The systolic function is mildly impaired. The Ejection Fraction is 45-50%. Septal motion consistent with post-operative state. Otherwise, there is mild global hypokinesis. There is a mechanical aortic valve prosthesis. The prosthetic aortic valve appears well seated. Calculated aortic valve area is 1.8 cm2 with maximum pressure gradient of 20 mmHg and mean pressure g radient of 10 mmHg. The aortic root is dilated at 4.7 cm The ascending aorta is dilated at 4.9 cm. Signed by : Channing Major, Electronically Approved : 10/10/2021 19:02:54
== END ==
LOC: ECHO 08:36
PROVIDERS: ATTEND Internal Medicine Cardiovascular Disease
DX: I34.0 Nonrheumatic mitral (valve) insufficiency (principal); I51.7 Cardiomegaly; I77.810 Thoracic aortic ectasia; Z95.2 Presence of prosthetic heart valve
CPT/HCPCS: 93306; C8929